=== PATIENT | female | born 1995 | race Two or more races ===

== ENCOUNTER 2017-03-09 21:39 | Outpatient (CLI) | payer OTHER, MEDICAID ==
[2017-03-09 22:19] LABS: APPEARANCE,URINE CLEAR; BILIRUBIN,URINE NEGATIVE (NEGATIVE); GLUCOSE, URINE NEGATIVE (NEGATIVE); KETONES,URINE NEGATIVE (NEGATIVE); LEUKOCYTE ESTERASE,URINE TRACE (NEGATIVE); NITRITE,URINE NEGATIVE (NEGATIVE); PROTEIN,URINE 30 mg/dL (NEGATIVE); URINE SPECIFIC GRAVITY 1.003; UROBILINOGEN,URINE NEGATIVE mg/dL (<2.0)
[2017-03-09] MEDS ORDERED: OXYCODONE-ACETAMINOPHEN 5-325 MG TABLET ONE (22:31)
[2017-03-09 22:33] LABS: URINE BARBITURATES SCREEN NEGATIVE; URINE METHADONE SCREEN NEGATIVE; URINE OPIATES LOW NEGATIVE; URINE PHENCYCLIDINE SCREEN NEGATIVE
[2017-03-09] MEDS ORDERED: OXYCODONE-ACETAMINOPHEN 5-325 MG TABLET PO ONE (22:45)
--- NOTE | 2017-03-10 01:51 | L&D Discharge Summary ---
OB Discharge Summary Datetime Report Generated by CPN: 03/10/2017 01:51 DISCHARGE DIAGNOSIS Diagnosis/Symptoms: False Labor; Back Pain Diagnoses/Symptoms Other: Monitors DC. Pt given 1 Percocet 5mg/325mg PO for back pain. Educated pt on dehydration and pre term labor signs. Treatment/Procedures Other: 1 Percocet 5mg/325mg PO Gestation: 26.6 Number of Babies in Womb: 1 Parity: 0 DIET/ACTIVITY/RESTRICTIONS Diet: Regular Activity: Normal Activity TEACHING/INSTRUCTIONS/REFERRALS Instructions Given To: pt and Instructions Understood: Patient Verbalized Understanding; Support Person Verbalized Understanding Referrals: None DISCHARGE INFORMATION Discharged AMA: No Discharge Date/Time: 03/09/2017 22:51 Discharged To: Home Discharge Provider Name: Ray Accompanied By: Discharge Method: Ambulatory Condition: Stable FOLLOW UP INFORMATION Follow Up With: [facility] Follow Up On: 1-2 Days Follow Up Phone Number: [facility] - Comments: Pt reports 5/5 pain with no visual signs of facial grimicing or pt on the phone, showed no acute distress. Pain medication given
--- NOTE | 2017-03-10 22:50 | Antepartum Discharge Summary ---
Antepartum DC Datetime Report Generated by CPN: 03/10/2017 22:45 DIET/ACTIVITY/RESTRICTIONS Diet: Regular (03/09/2017 22:48:Crystal Savanah, RN) Activity: Normal Activity (03/09/2017 22:48:Crystal Savanah, RN) TEACHING/INSTRUCTIONS/REFERRALS Instructions Given To: pt and (03/09/2017 22:48:Crystal Savanah, RN) Instructions Understood: Patient Verbalized Understanding; Support Person Verbalized Understanding (03/09/2017 22:48:Mia Pavon RN) Referrals: None (03/09/2017 22:48:Mia Pavon RN) DISCHARGE INFORMATION Discharged AMA: No (03/09/2017 22:48:Mia Pavon RN) Discharge Date/Time: 03/09/2017 22:51 (03/09/2017 22:48:Mia Pavon RN) Discharged To: Home (03/09/2017 22:48:Mia Pavon RN) [facility] (03/09/2017 22:48:Mia Pavon RN) Accompanied By: (03/09/2017 22:48:Mia Pavon RN) Discharge Method: Ambulatory (03/09/2017 22:48:Mia Pavon RN) Condition: Stable (03/09/2017 22:48:Mia Pavon RN) FOLLOW UP INFORMATION Follow Up With: [facility] (03/09/2017 22:48:Mia Pavon RN) Follow Up On: 1-2 Days (03/09/2017 22:48:Mia Pavon RN) Follow Up Phone Number: [facility] - (03/09/2017 22:48:Mia Pavon RN) Comments: Pt reports 5/5 pain with no visual signs of facial grimicing or pt on the phone, showed no acute distress. Pain medication given (03/09/2017 22:48:Mia Pavon RN)
--- NOTE | 2017-03-10 22:50 | L&D General Admission ---
General Admit Datetime Report Generated by CPN: 03/10/2017 22:45 INFORMATION Patient Age: 21 (03/09/2017 21:39:QS system process) EDC: 06/09/2017 00:00 (03/09/2017 21:43:Bhavana Dugan RN) : 1 (03/09/2017 21:43:Crystal PRISCILLA Pavon) Para: 0 (03/09/2017 21:43:Crystal Savanah RN) Baby, Number in Womb: 1 (03/09/2017 21:43:Crystal Savanah RN) CARE Adequate Care: Yes (03/09/2017 21:43:Mia Pavon RN) Height (in): 68 (03/09/2017 22:12:QS system process) ALLERGIES Medication Allergy: No (03/09/2017 21:43:Mia Pavon RN) Medication Allergies: No Known Allergies (03/09/2017) (03/09/2017 22:11:QS system process) Latex Allergy: No Latex Allergies (03/09/2017 21:43:Mia Pavon RN) Food Allergies: NA (03/09/2017 21:43:Mia Pavon RN) Environmental Allergies: NA (03/09/2017 21:43:Mia Pavon RN) COMMUNICATION Primary Language: Kenyan (03/09/2017 21:43:Mia Pavon RN) Medical Tx Preferred Language: Kenyan (03/09/2017 21:43:Mia Pavon RN) DEMOGRAPHICS Address: [address] [place] [id number] (03/09/2017 21:39:QS system process) Zipcode: [address] (03/09/2017 21:39:QS system process) Home (03/09/2017 21:39:QS system process) SSN: [id number] (03/09/2017 21:39:QS system process) Next of Kin Name: MELISA ERNANDEZ (03/09/2017 21:39:QS system process) Next of Kin (03/09/2017 21:39:QS system process) Next of Kin Relationship: SPO (03/09/2017 21:39:QS system process) Date of : 1995 (03/09/2017 21:39:QS system process) Marital Status: (03/09/2017 21:39:QS system process) Sex: Female (03/09/2017 21:39:QS system process) Race: Other (03/09/2017 21:39:QS system process) Ethnicity: Non- or (03/09/2017 21:39:QS system process) Caodaism: None (03/09/2017 21:39:QS system process) DRUG AND ALCOHOL USE Alcohol: No (03/09/2017 21:43:Mia Pavon RN) Cigarettes: Never Smoker. [id number] (03/09/2017 21:43:Mia Pavon RN) Marijuana: No (03/09/2017 21:43:Mia Pavon RN) Cocaine: No (03/09/2017 21:43:Mia Pavon RN) Other Illicit Drugs: No (03/09/2017 21:43:Mia Pavon RN) VACCINE HISTORY Influenza Vaccine: Yes (03/09/2017 21:43:Mia Pavon RN) Influenza Date: 2016 (03/09/2017 21:43:Mia Pavon RN) Pneumococcal Vaccine: No (03/09/2017 21:43:Mia Pavon RN) Tetanus Vaccine: Yes (03/09/2017 21:43:Mia Pavon RN) Tetanus Date: 2012 (03/09/2017 21:43:Mia Pavon RN) Tdap Vaccine: Yes (03/09/2017 21:43:Mia Pavon RN) Tdap Date: 2012 (03/09/2017 21:43:Mia Pavon RN) Hepatitis B Vaccine: Yes (03/09/2017 21:43:Mia Pavon RN) Hepatitis B Vaccine Date : 2012 (03/09/2017 21:43:Mia Pavon RN) Commercial Trailer Truck Driver: [facility] (03/09/2017 21:43:Mia Pavon RN) Feeding Preference: Breast (03/09/2017 21:43:Mia Pavon RN) Benefit of Breast Feed Discussed: Yes (03/09/2017 21:43:Mia Pavon RN) Classes Attended: No (03/09/2017 21:43:Mia Pavon RN) Tubal Ligation: No (03/09/2017 21:43:Mia Pavon RN) Tubal Authorization Signed: N/A (03/09/2017 21:43:Mia Pavon RN) Consent: N/A (03/09/2017 21:43:Mia Pavon RN) Consent Signed: N/A (03/09/2017 21:43:Mia Pavon RN) Support Person: Melisa Ernandez (03/09/2017 21:43:Mia Pavon RN) Support Person Relationship: (03/09/2017 21:43:Mia Pavon RN) Cultural/Spritual Practice: No (03/09/2017 21:43:Mia Pavon RN) Spir/Cult Dietary Needs: No (03/09/2017 21:43:Mia Pavon RN) LIVING SITUATION/DISCHARGE PLAN Living Arrangements: Apartment (03/09/2017 21:43:Mia Pavon RN) Adequate Access to:: Electric; Heat; Refrigeration; Plumbing/Running water; Phone; Transportation (03/09/2017 21:43:Mia Pavon RN) WIC Program: No (03/09/2017 21:43:Mia Pavon RN) Discharge Bandoleer Packer Person: Melisa Ernandez (03/09/2017 21:43:Mia Pavon RN) Person to Help after Discharge: Melisa Ernandez (03/09/2017 21:43:Mia Pavno RN) Currently Using Commun Resources: No (03/09/2017 21:43:Mia Pavon RN) Outside Agency/Car Inspection And Repair Manager: No (03/09/2017 21:43:Mia Pavon RN) Car Seat for Discharge: Yes (03/09/2017 21:43:Mia Pavon RN) Adoption Requested: No (03/09/2017 21:43:Mia Pavon RN) Pt Contact w/infant Post : N/A (03/09/2017 21:43:Mia Pavon RN) OB/PREVIOUS HISTORY Current Procedures: Ultrasound (03/09/2017 21:43:Mia Pavon RN) History of Previous : No (03/09/2017 21:43:Mia Pavon RN) History of Gestational Diabetes: No (03/09/2017 21:43:Mia Pavon RN) History of PIH: No (03/09/2017 21:43:Mia Pavon RN) History of Incompetent Cervix: No (03/09/2017 21:43:Mia Pavon RN) History of Placenta Previa/Abrup: No (03/09/2017 21:43:Mia Pavon RN) History of Macrosomia: No (03/09/2017 21:43:Mia Pavon RN) History of IUGR: No (03/09/2017 21:43:Mia Pavon RN) History of Hemorrhage: No (03/09/2017 21:43:Mia Pavon RN) History of Loss/Stillborn: No (03/09/2017 21:43:Mia Pavon RN) History of : No (03/09/2017 21:43:Mia Pavon RN) History of D (Rh) Sensitization: No (03/09/2017 21:43:Mia Pavon RN) History Recurrent Loss/Stillborn: No (03/09/2017 21:43:Mia Pavon RN) History Depression/PP Depression: No (03/09/2017 21:43:Mia Pavon RN) History of Uterine Anomaly/ANGEL: No (03/09/2017 21:43:Mia Pavon RN) History of Infertility: No (03/09/2017 21:43:Mia Pavon RN) History of ART Treatment: No (03/09/2017 21:43:Mia Pavon RN) History of ANGEL: No (03/09/2017 21:43:Mia Pavon RN) Comments Obstetrical History: G1- current (03/09/2017 21:43:Mia Pavon RN) MEDICAL HISTORY Med Hx Diabetes: No (03/09/2017 21:43:Mia Pavon RN) Med Hx Hypertension: No (03/09/2017 21:43:Mia Pavon RN) Med Hx Heart Disease: No (03/09/2017 21:43:Mia Pavon RN) Med Hx Autoimmune Disorder: No (03/09/2017 21:43:Mia Pavon RN) Med Hx Kidney Disease/UTI: No (03/09/2017 21:43:Mia Pavon RN) Med Hx Neurologic/Epilepsy: No (03/09/2017 21:43:Mia Pavon RN) Med Hx Psychiatric Disorders: No (03/09/2017 21:43:Mia Pavon RN) Med Hx Hepatitis/Liver Disease: No (03/09/2017 21:43:Mia Pavon RN) Med Hx Varicosities/Phlebitis: No (03/09/2017 21:43:Mia Pavon RN) Med Hx Thyroid Dysfunction: No (03/09/2017 21:43:Mia Pavon RN) Med Hx Trauma/Violence: No (03/09/2017 21:43:Mia Pavon RN) Med Hx Blood Transfusion: No (03/09/2017 21:43:Mia Pvaon RN) Med Hx Pulmonary (Asthma,TB): No (03/09/2017 21:43:Mia Pavon RN) Med Hx Breast: No (03/09/2017 21:43:Mia Pavon RN) Med Hx ASSISTANT PROFESSOR OF ANTHROPOLOGY Surgery: No (03/09/2017 21:43:Mia Pavon RN) Med Hx Hospitalization/Surgery: No (03/09/2017 21:43:Mia Pavon RN) Med Hx Anesthetic Complications: No (03/09/2017 21:43:Mia Pavon RN) Med Hx Abnormal Pap Smear: No (03/09/2017 21:43:Mia Pavon RN) Other Medical Diseases: No (03/09/2017 21:43:Mia Pavon RN) Med Hx Significant Family Hx: No (03/09/2017 21:43:Mia Pavon RN) INFECTIOUS HISTORY Inf Hx Gonorrhea: No (03/09/2017 21:43:Mia Pavon RN) Inf Hx Chlamydia: No (03/09/2017 21:43:Mia Pavon RN) Inf Hx Syphilis: No (03/09/2017 21:43:Mia Pavon RN) Inf Hx HIV/AIDS: No (03/09/2017 21:43:Mia Pavon RN) Inf Hx Human Papilloma Virus: No (03/09/2017 21:43:Mia Pavon RN) Inf Hx Pt/Partner Genital Herpes: No (03/09/2017 21:43:Mia Pavon RN) Inf Hx Tuberculosis/Exposure: No (03/09/2017 21:43:Mia Pavon RN) Inf Hx Hepatitis B,C: No (03/09/2017 21:43:Mia Paovn RN) Inf Hx Rash or Viral Illness: No (03/09/2017 21:43:Mia Pavon RN) GENETIC HISTORY Gen Hx Age >=35 at AZUCENA: No (03/09/2017 21:43:Mia Pavon RN) Gen Hx Thalassemia: No (03/09/2017 21:43:Mia Pavon RN) Gen Hx Congenital Heart Defect: No (03/09/2017 21:43:Mia Pavon RN) Gen Hx Neural Tube Defect: No (03/09/2017 21:43:Mia Pavon RN) Gen Hx Down's Syndrome: No (03/09/2017 21:43:Mia Pavon RN) Gen Hx Leoniads-Sachs: No (03/09/2017 21:43:Mia Pavon RN) Gen Hx Oma: No (03/09/2017 21:43:Mia Pavon RN) Gen Hx Familial Dysautonomia: No (03/09/2017 21:43:Mia Pavon RN) Gen Hx Sickle Cell Disease/Trait: No (03/09/2017 21:43:Mia Pavon RN) Gen Hx Hemophilia/Blood Disorder: No (03/09/2017 21:43:Mia Pavon RN) Gen Hx Muscular Dystrophy: No (03/09/2017 21:43:Mia Pavon RN) Gen Hx Cystic Fibrosis: No (03/09/2017 21:43:Mia Pavon RN) Gen Hx Huntingtons Chorea: No (03/09/2017 21:43:Mia Pavon RN) Gen Hx Mental Retardation/Autism: No (03/09/2017 21:43:Mia Pavon RN) Gen Hx Tested for Fragile X: No (03/09/2017 21:43:Mia Pavon RN) Gen Hx Other Inher/Chromosomal: No (03/09/2017 21:43:Mia Pavon RN) Gen Hx Maternal Metabolic DO: No (03/09/2017 21:43:Mia Pavon RN) Gen Hx Pt Father or FOB Defect: No (03/09/2017 21:43:Mia Pavon RN) Gen Hx Other Genetic History: No (03/09/2017 21:43:Mia Pavon RN) Gen Hx Drugs/Meds since LMP: No (03/09/2017 21:43:Mia Pavon RN) Gen Hx Medications: vitamins (03/09/2017 21:43:Mia Pavon RN)
--- NOTE | 2017-03-10 22:50 | L&D Current Admission ---
Current Admit Datetime Report Generated by CPN: 03/10/2017 22:45 ADMISSION INFORMATION Chief Complaint: Back Pain (03/09/2017 22:01:Crystal PRISCILLA Pavon)
--- NOTE | 2017-03-10 22:50 | L&D Discharge Summary ---
OB Discharge Summary Datetime Report Generated by CPN: 03/10/2017 22:45 DISCHARGE DIAGNOSIS Diagnosis/Symptoms: False Labor; Back Pain Diagnoses/Symptoms Other: Monitors DC. Pt given 1 Percocet 5mg/325mg PO for back pain. Educated pt on dehydration and pre term labor signs. Treatment/Procedures Other: 1 Percocet 5mg/325mg PO Gestation: 26.6 Number of Babies in Womb: 1 Parity: 0 DIET/ACTIVITY/RESTRICTIONS Diet: Regular Activity: Normal Activity TEACHING/INSTRUCTIONS/REFERRALS Instructions Given To: pt and Instructions Understood: Patient Verbalized Understanding; Support Person Verbalized Understanding Referrals: None DISCHARGE INFORMATION Discharged AMA: No Discharge Date/Time: 03/09/2017 22:51 Discharged To: Home Discharge Provider Name: Ray Accompanied By: Discharge Method: Ambulatory Condition: Stable FOLLOW UP INFORMATION Follow Up With: [email or web address] Follow Up On: 1-2 Days Follow Up Phone Number: [email or web address] - Comments: Pt reports 5/5 pain with no visual signs of facial grimicing or pt on the phone, showed no acute distress. Pain medication given
--- NOTE | 2017-03-11 04:50 | L&D Current Admission ---
Current Admit Datetime Report Generated by CPN: 03/11/2017 04:46 ADMISSION INFORMATION Chief Complaint: Back Pain (03/09/2017 22:01:Crystal PRISCILLA Pavon)
--- NOTE | 2017-03-11 04:50 | Antepartum Discharge Summary ---
Antepartum DC Datetime Report Generated by CPN: 03/11/2017 04:46 DIET/ACTIVITY/RESTRICTIONS Diet: Regular (03/09/2017 22:48:Crystal Savanah, RN) Activity: Normal Activity (03/09/2017 22:48:Crystal Savanah, RN) TEACHING/INSTRUCTIONS/REFERRALS Instructions Given To: pt and (03/09/2017 22:48:Crystal Savanah, RN) Instructions Understood: Patient Verbalized Understanding; Support Person Verbalized Understanding (03/09/2017 22:48:Mia Pavon RN) Referrals: None (03/09/2017 22:48:Mia Pavon RN) DISCHARGE INFORMATION Discharged AMA: No (03/09/2017 22:48:Mia Pavon RN) Discharge Date/Time: 03/09/2017 22:51 (03/09/2017 22:48:Mia Pavon RN) Discharged To: Home (03/09/2017 22:48:Mia Pavon RN) Discharge Provider [facility]: [facility] (03/09/2017 22:48:Mia Pavon RN) Accompanied By: (03/09/2017 22:48:Mia Pavon RN) Discharge Method: Ambulatory (03/09/2017 22:48:Mia Pavon RN) Condition: Stable (03/09/2017 22:48:Mia Pavon RN) FOLLOW UP INFORMATION Follow Up With: [facility] (03/09/2017 22:48:Mia Pavon RN) Follow Up On: 1-2 Days (03/09/2017 22:48:Mia Pavon RN) Follow Up Phone Number: [facility] - (03/09/2017 22:48:Mia Pavon RN) Comments: Pt reports 5/5 pain with no visual signs of facial grimicing or pt on the phone, showed no acute distress. Pain medication given (03/09/2017 22:48:Mia Pavon RN)
--- NOTE | 2017-03-11 04:50 | L&D Discharge Summary ---
OB Discharge Summary Datetime Report Generated by CPN: 03/11/2017 04:46 DISCHARGE DIAGNOSIS Diagnosis/Symptoms: False Labor; Back Pain Diagnoses/Symptoms Other: Monitors DC. Pt given 1 Percocet 5mg/325mg PO for back pain. Educated pt on dehydration and pre term labor signs. Treatment/Procedures Other: 1 Percocet 5mg/325mg PO Gestation: 26.6 Number of Babies in Womb: 1 Parity: 0 DIET/ACTIVITY/RESTRICTIONS Diet: Regular Activity: Normal Activity TEACHING/INSTRUCTIONS/REFERRALS Instructions Given To: pt and Instructions Understood: Patient Verbalized Understanding; Support Person Verbalized Understanding Referrals: None DISCHARGE INFORMATION Discharged AMA: No Discharge Date/Time: 03/09/2017 22:51 Discharged To: Home Discharge Provider Name: Ray Accompanied By: Discharge Method: Ambulatory Condition: Stable FOLLOW UP INFORMATION Follow Up With: [facility] Follow Up On: 1-2 Days Follow Up Phone Number: [facility] - Comments: Pt reports 5/5 pain with no visual signs of facial grimicing or pt on the phone, showed no acute distress. Pain medication given
--- NOTE | 2017-03-11 04:50 | L&D General Admission ---
General Admit Datetime Report Generated by CPN: 03/11/2017 04:46 INFORMATION Patient Age: 21 (03/09/2017 21:39:QS system process) EDC: 06/09/2017 00:00 (03/09/2017 21:43:Bhavana Dugan RN) : 1 (03/09/2017 21:43:Crystal PRISCILLA Pavon) Para: 0 (03/09/2017 21:43:Crystal Savanah RN) Baby, Number in Womb: 1 (03/09/2017 21:43:Crystal Savanah RN) CARE Adequate Care: Yes (03/09/2017 21:43:Mia Pavon RN) Height (in): 68 (03/09/2017 22:12:QS system process) ALLERGIES Medication Allergy: No (03/09/2017 21:43:Mia Pavon RN) Medication Allergies: No Known Allergies (03/09/2017) (03/09/2017 22:11:QS system process) Latex Allergy: No Latex Allergies (03/09/2017 21:43:Mia Pavon RN) Food Allergies: NA (03/09/2017 21:43:Mia Pavon RN) Environmental Allergies: NA (03/09/2017 21:43:Mia Pavon RN) COMMUNICATION Primary Language: Indian (03/09/2017 21:43:Mia Pavon RN) Medical Tx Preferred Language: Indian (03/09/2017 21:43:Mia Pavon RN) DEMOGRAPHICS Address: [address] [place] [id number] (03/09/2017 21:39:QS system process) Zipcode: [address] (03/09/2017 21:39:QS system process) Home (03/09/2017 21:39:QS system process) SSN: [id number] (03/09/2017 21:39:QS system process) Next of Kin Name: MELISA ERNANDEZ (03/09/2017 21:39:QS system process) Next of Kin (03/09/2017 21:39:QS system process) Next of Kin Relationship: SPO (03/09/2017 21:39:QS system process) Date of : 1995 (03/09/2017 21:39:QS system process) Marital Status: (03/09/2017 21:39:QS system process) Sex: Female (03/09/2017 21:39:QS system process) Race: Other (03/09/2017 21:39:QS system process) Ethnicity: Non- or (03/09/2017 21:39:QS system process) Evangelical: None (03/09/2017 21:39:QS system process) DRUG AND ALCOHOL USE Alcohol: No (03/09/2017 21:43:Mia Pavon RN) Cigarettes: Never Smoker. [id number] (03/09/2017 21:43:Mia Pavon RN) Marijuana: No (03/09/2017 21:43:Mia Pavon RN) Cocaine: No (03/09/2017 21:43:Mia Pavon RN) Other Illicit Drugs: No (03/09/2017 21:43:Mia Pavon RN) VACCINE HISTORY Influenza Vaccine: Yes (03/09/2017 21:43:Mia Pavon RN) Influenza Date: 2016 (03/09/2017 21:43:Mia Pavon RN) Pneumococcal Vaccine: No (03/09/2017 21:43:Mia Pavon RN) Tetanus Vaccine: Yes (03/09/2017 21:43:Mia Pavon RN) Tetanus Date: 2012 (03/09/2017 21:43:Mia Pavon RN) Tdap Vaccine: Yes (03/09/2017 21:43:Mia Pavon RN) Tdap Date: 2012 (03/09/2017 21:43:Mia Pavon RN) Hepatitis B Vaccine: Yes (03/09/2017 21:43:Mia Pavon RN) Hepatitis B Vaccine Date : 2012 (03/09/2017 21:43:Mia Pavon RN) [place]: [facility] (03/09/2017 21:43:Mia Pavon RN) Feeding Preference: Breast (03/09/2017 21:43:Mia Pavon RN) Benefit of Breast Feed Discussed: Yes (03/09/2017 21:43:Mia Pavon RN) Classes Attended: No (03/09/2017 21:43:Mia Pavon RN) Tubal Ligation: No (03/09/2017 21:43:Mia Pavon RN) Tubal Authorization Signed: N/A (03/09/2017 21:43:Mia Pavon RN) Consent: N/A (03/09/2017 21:43:Mia Pavon RN) Consent Signed: N/A (03/09/2017 21:43:Mia Pavon RN) Support Person: Melisa Ernandez (03/09/2017 21:43:Mia Pavon RN) Support Person Relationship: (03/09/2017 21:43:Mia Pavon RN) Cultural/Spritual Practice: No (03/09/2017 21:43:Mia Pavon RN) Spir/Cult Dietary Needs: No (03/09/2017 21:43:Mia Pavon RN) LIVING SITUATION/DISCHARGE PLAN Living Arrangements: Apartment (03/09/2017 21:43:Mia Pavon RN) Adequate Access to:: Electric; Heat; Refrigeration; Plumbing/Running water; Phone; Transportation (03/09/2017 21:43:Mia Pavon RN) WIC Program: No (03/09/2017 21:43:Mia Pavon RN) Discharge Primary Clinician Person: Melisa Ernandez (03/09/2017 21:43:Mia Pavon RN) Person to Help after Discharge: Melisa Ernandez (03/09/2017 21:43:Mia Pavon RN) Currently Using Commun Resources: No (03/09/2017 21:43:Mia Pavon RN) Outside Agency/Chlorination Operator: No (03/09/2017 21:43:Mia Pavon RN) Car Seat for Discharge: Yes (03/09/2017 21:43:Mia Pavon RN) Adoption Requested: No (03/09/2017 21:43:Mia Pavon RN) Pt Contact w/infant Post : N/A (03/09/2017 21:43:Mia Pavon RN) OB/PREVIOUS HISTORY Current Procedures: Ultrasound (03/09/2017 21:43:Mia Pavon RN) History of Previous : No (03/09/2017 21:43:Mia Pavon RN) History of Gestational Diabetes: No (03/09/2017 21:43:Mia Pavon RN) History of PIH: No (03/09/2017 21:43:Mia Pavon RN) History of Incompetent Cervix: No (03/09/2017 21:43:Mia Pavon RN) History of Placenta Previa/Abrup: No (03/09/2017 21:43:Mia Pavon RN) History of Macrosomia: No (03/09/2017 21:43:Mia Pavon RN) History of IUGR: No (03/09/2017 21:43:Mia Pavon RN) History of Hemorrhage: No (03/09/2017 21:43:Mia Pavon RN) History of Loss/Stillborn: No (03/09/2017 21:43:Mia Pavon RN) History of : No (03/09/2017 21:43:Mia Pavon RN) History of D (Rh) Sensitization: No (03/09/2017 21:43:Mia Pavon RN) History Recurrent Loss/Stillborn: No (03/09/2017 21:43:Mia Pavon RN) History Depression/PP Depression: No (03/09/2017 21:43:Mia Pavon RN) History of Uterine Anomaly/ANGEL: No (03/09/2017 21:43:Mia Pavon RN) History of Infertility: No (03/09/2017 21:43:Mia Pavon RN) History of ART Treatment: No (03/09/2017 21:43:Mia Pavon RN) History of ANGEL: No (03/09/2017 21:43:Mia Pavon RN) Comments Obstetrical History: G1- current (03/09/2017 21:43:Mia Pavon RN) MEDICAL HISTORY Med Hx Diabetes: No (03/09/2017 21:43:Mia Pavon RN) Med Hx Hypertension: No (03/09/2017 21:43:Mia Pavon RN) Med Hx Heart Disease: No (03/09/2017 21:43:Mia Pavon RN) Med Hx Autoimmune Disorder: No (03/09/2017 21:43:Mia Pavon RN) Med Hx Kidney Disease/UTI: No (03/09/2017 21:43:Mia Pavon RN) Med Hx Neurologic/Epilepsy: No (03/09/2017 21:43:Mia Pavon RN) Med Hx Psychiatric Disorders: No (03/09/2017 21:43:Mia Pavon RN) Med Hx Hepatitis/Liver Disease: No (03/09/2017 21:43:Mia Pavon RN) Med Hx Varicosities/Phlebitis: No (03/09/2017 21:43:Mia Pavon RN) Med Hx Thyroid Dysfunction: No (03/09/2017 21:43:Mia Pavon RN) Med Hx Trauma/Violence: No (03/09/2017 21:43:Mia Pavon RN) Med Hx Blood Transfusion: No (03/09/2017 21:43:Mia Pavon RN) Med Hx Pulmonary (Asthma,TB): No (03/09/2017 21:43:Mia Pavon RN) Med Hx Breast: No (03/09/2017 21:43:Mia Pavon RN) Med Hx [employer]ATE [employer]OP ATTENDANT Surgery: No (03/09/2017 21:43:Mia Pavon RN) Med Hx Hospitalization/Surgery: No (03/09/2017 21:43:Mia Pavon RN) Med Hx Anesthetic Complications: No (03/09/2017 21:43:Mia Pavon RN) Med Hx Abnormal Pap Smear: No (03/09/2017 21:43:Mia Pavon RN) Other Medical Diseases: No (03/09/2017 21:43:Mia Pavon RN) Med Hx Significant Family Hx: No (03/09/2017 21:43:Mia Pavon RN) INFECTIOUS HISTORY Inf Hx Gonorrhea: No (03/09/2017 21:43:Mia Pavon RN) Inf Hx Chlamydia: No (03/09/2017 21:43:Mia Pavon RN) Inf Hx Syphilis: No (03/09/2017 21:43:Mia Pavon RN) Inf Hx HIV/AIDS: No (03/09/2017 21:43:Mia Pavon RN) Inf Hx Human Papilloma Virus: No (03/09/2017 21:43:Mia Pavon RN) Inf Hx Pt/Partner Genital Herpes: No (03/09/2017 21:43:Mia Pavon RN) Inf Hx Tuberculosis/Exposure: No (03/09/2017 21:43:Mia Pavon RN) Inf Hx Hepatitis B,C: No (03/09/2017 21:43:Mia Pavon RN) Inf Hx Rash or Viral Illness: No (03/09/2017 21:43:Mia Pavon RN) GENETIC HISTORY Gen Hx Age >=35 at [facility]: No (03/09/2017 21:43:Mia Pavon RN) Gen Hx Thalassemia: No (03/09/2017 21:43:Mia Pavon RN) Gen Hx Congenital Heart Defect: No (03/09/2017 21:43:Mia Pavon RN) Gen Hx Neural Tube Defect: No (03/09/2017 21:43:Mia Pavon RN) Gen Hx Down's Syndrome: No (03/09/2017 21:43:Mia Pavon RN) Gen Hx Leonidas-Sachs: No (03/09/2017 21:43:Mia Pavon RN) Gen Hx Oma: No (03/09/2017 21:43:Mia aPvon RN) Gen Hx Familial Dysautonomia: No (03/09/2017 21:43:Mia Pavon RN) Gen Hx Sickle Cell Disease/Trait: No (03/09/2017 21:43:Mia Pavon RN) Gen Hx Hemophilia/Blood Disorder: No (03/09/2017 21:43:Mia Pavon RN) Gen Hx Muscular Dystrophy: No (03/09/2017 21:43:Mia Pavon RN) Gen Hx Cystic Fibrosis: No (03/09/2017 21:43:Mia Pavon RN) Gen Hx Huntingtons Chorea: No (03/09/2017 21:43:Mia Pavon RN) Gen Hx Mental Retardation/Autism: No (03/09/2017 21:43:Mia Pavon RN) Gen Hx Tested for Fragile X: No (03/09/2017 21:43:Mia Pavon RN) Gen Hx Other Inher/Chromosomal: No (03/09/2017 21:43:Mia Pavon RN) Gen Hx Maternal Metabolic DO: No (03/09/2017 21:43:Mia Pavon RN) Gen Hx Pt Father or FOB Defect: No (03/09/2017 21:43:Mia Pavon RN) Gen Hx Other Genetic History: No (03/09/2017 21:43:Mia Pavon RN) Gen Hx Drugs/Meds since LMP: No (03/09/2017 21:43:Mia Pavon RN) Gen Hx Medications: vitamins (03/09/2017 21:43:Mia Pavon RN)
--- NOTE | 2017-03-11 10:50 | L&D Admission Assessment ---
LD ADM ASMT Datetime Report Generated by CPN: 03/11/2017 10:45 PATIENT ASSESSMENT Assessment Type: Triage (03/09/2017 22:01:Crystal Pendleton, RN) WEIGHT Weight (lb): 156 (03/09/2017 22:12:QS system process) Weight (kg): 70.9 (03/09/2017 22:12:QS system process) PAIN Pain Scale: 5 (03/09/2017 22:01:Crystal Savanah, RN) Pain Presence: Constant (03/09/2017 22:01:Crystal Pendleton, RN) Pain Type: Sharp; Stabbing (03/09/2017 22:01:Crystal Savanah, RN) Pain Location: Abdomen; Back (03/09/2017 22:01:Crystal Pendleton, RN) Pain Goal: 1 (03/09/2017 22:01:Crystal Pendleton, RN) Pain Related to Contraction: Unsure (03/09/2017 22:01:Crystal Savanah, RN) CONTRACTIONS Frequency (min): Irregular mild contractions with irritability (03/09/2017 22:12:Crystal Pendleton, RN) Quality: Mild (03/09/2017 22:12:Crystal Pendleton, RN) Resting Tone [place]: Relaxed (03/09/2017 22:12:Crystal Savanah, RN) NEURO Level of Consciousness: Fully Conscious (03/09/2017 22:01:Crystal Pendleton, RN) DTR's/Clonus: DTRs 1+; No Clonus (03/09/2017 22:01:Crystal Savanah, RN) Headache: Denies (03/09/2017 22:01:Crystal Pendleton, RN) Dizziness: No (03/09/2017 22::Crystal Savanah, RN) Blurred Vision: No (03/09/2017 22:01:Crystal Pendleton, RN) Extremity Numbness/Tingling : None (03/09/2017 22::Crystal Savanah, RN) Extremity Movement: Full Range of Motion (03/09/2017 22::Crystal Savanah, RN) CARDIOVASCULAR Heart Rhythm: Regular (03/09/2017 22:01:Crystal Savanah, RN) Nailbeds: [place] (03/09/2017 22::Crystal Pendleton, RN) Capillary Refill: Less than 3 Seconds (03/09/2017 22:01:Mia Savanah, RN) Lower Extremities Edema: None (03/09/2017 22:01:Mia Pavon RN) Lower Extremities Edema Degree: None (03/09/2017 22:01:Mia Pavon RN) Upper Extremities Edema: None (03/09/2017 22:01:Mia Pavon RN) Upper Extremities Edema Degree: None (03/09/2017 22:01:Mia Pavon RN) Facial Edema: None (03/09/2017 22:01:Mia Pavon RN) Nick's Sign Left Leg: Negative (03/09/2017 22:01:Mia Pavon RN) Nick's Sign Right Leg: Negative (03/09/2017 22:01:Mia Pavon RN) DVT RISK ASSESSMENT DVT Risk Age: Age less than 41 years (03/09/2017 22:01:Mia Pavon RN) DVT Risk BMI: BMI<31 (03/09/2017 22:01:Mia Pavon RN) DVT Risk Surgery: None Applicable (03/09/2017 22:01:Mia Pavon RN) DVT Risk Other: None Applicable (03/09/2017 22:01:Mia Pavon RN) DVT Risk Total: 0 (03/09/2017 22:01:QS system process) DVT Risk Text: Low Risk (<10%) No specific measures, early ambulation (03/09/2017 22:01:QS system process) RESPIRATORY Respiratory Effort: Unlabored; Regular Rhythm; Equal Expansion (03/09/2017 22:01:Crystal Pendleton, RN) Breath Sounds, Left: Clear and Equal (03/09/2017 22:01:Crystal Pendleton, RN) Breath Sounds, Right: Clear and Equal (03/09/2017 22:01:Crystal Pendleton, RN) Cough Productivity: None (03/09/2017 22:01:Crystal Savanah, RN) GASTROINTESTINAL Nausea/Vomiting: Denies (03/09/2017 22:01:Mia Pavon RN) Bowel Sounds: Normoactive (03/09/2017 22:01:Mia Pavon RN) RUQ Epigastric Pain: Denies (03/09/2017 22:01:Mia Pavon RN) Response to Antacids: Pain Relieved (03/09/2017 22:01:Mia Pavon RN) Bowel Patterns: Soft, Formed Stool (03/09/2017 22:01:Mia Pavon RN) Hemorrhoids: None (03/09/2017 22:01:Mia Pavon RN) Diet Type: Regular diet (03/09/2017 22:01:Mia Pavon RN) Last Meal: 03/09/2017 21:00 (03/09/2017 22:01:Mia Pavon RN) GENITOURINARY Bladder: Nondistended (03/09/2017 22:01:Mia Pavon RN) Frequency of Urination: No (03/09/2017 22:01:Mia Pavon RN) Urination Burning: No (03/09/2017 22:01:Mia Pavon RN) CVA Tenderness: No (03/09/2017 22:01:Mia Pavon RN) Vaginal Bleeding: None (03/09/2017 22:01:Mia Pavon RN) Vaginal Discharge Amount: None (03/09/2017 22:01:Mia Pavon RN) Vaginal Discharge Color: N/A (03/09/2017 22:01:Mia Pavon RN) Vaginal Discharge Character: None (03/09/2017 22:01:Mia Pavon RN) INTEGUMENTARY Skin Color: Normal for Race (03/09/2017 22:01:Mia Pavon RN) Skin Temperature: Warm (03/09/2017 22:01:Mia Pavon RN) Skin Moisture: Dry (03/09/2017 22:01:Mia Pavon RN) Body Piercings/Tattoos: Tattoos (03/09/2017 22:01:Mia Pavon RN) RIGOBERTO SKIN ASSESSMENT Rigoberto Scale Sensory Perception: No Impairment- Responds to verbal commands. Has no sensory deficit which would limit ability to feel or voice pain or discomfort (03/09/2017 22:01:Mia Pavon RN) Rigoberto Scale Moisture: Rarely Moist- Skin is usually dry. Linen only requires changing at routine intervals (03/09/2017 22:01:Mia Pavon RN) Rigoberto Scale Activity: Walks Frequently- Walks outside the room at least twice a day and inside room at least every 2 hours during the day. (03/09/2017 22:01:Mia Pavon RN) Rigoberto Scale Mobility: No Limitations- Makes major and frequent changes in position without assistance (03/09/2017 22:01:Mia Pavon RN) Rigoberto Scale Nutrition: Excellent- Eats most of every meal. Never refuses a meal. Usually eats a total of 4 or more servings of meat and dairy products. Occasionally eats between meals. Does not require supplementation (03/09/2017 22:01:Mia Pavon RN) Rigoberto Scale Friction and Shear: No Apparent Problem- Moves in bed and in chair independently and has sufficient muscle strength to lift up completely during move. Maintains good position in bed or chair at all times (03/09/2017 22:01:Mia Pavon RN) Rigoberto Scale Total: 23 (03/09/2017 22:01:QS system process) Rigoberto Scale Risk: No Risk of Pressure Ulcer Noted at this Time (03/09/2017 22:01:QS system process) SUPPORT Family Support: Significant Other supportive, at bedside frequently (03/09/2017 22:01:Crystal Savanah, RN) Emotional State: Calm/Relaxed (03/09/2017 22:01:Crystal Savanah, RN) SAFETY Call [place]res Within Reach: Yes (03/09/2017 22:01:Crystal Savanah, RN) Side Rails Up: Yes (03/09/2017 22:01:Crystal Savanah, RN) Bed Wheels Locked: Yes (03/09/2017 22:01:Crystal Pendleton, RN) Arm Bands Present: Yes (03/09/2017 22:01:Crystal Pendleton, RN) Isolation: [place] (03/09/2017 22:01:Crystal Savanah, RN) FALL SCREEN Fall Risk History of Falling: (0) No (03/09/2017 22:01:Mia Pavon RN) Fall Risk Secondary Diagnosis: (0) No (03/09/2017 22::Mia Pavon RN) Fall Risk Ambulatory Aid: (0) None/Bedrest/Wheelchair/Nurse Assist (03/09/2017 22:01:Mia Pavon RN) Fall Risk IV Therapy: (0) No (03/09/2017 22::Mia Pavon RN) Fall Risk Gait: (0) Normal/Bedrest/Immobile (03/09/2017 22::Mia Pavon RN) Fall Risk Mental Status: (0) Oriented to Own Ability (03/09/2017 22:01:Mia Pavon RN) Fall Risk Score: 0 (03/09/2017 22:01:QS system process) Fall Risk Score Definition: No Risk: No action required (03/09/2017 22:01:QS system process) RECENT TRAVEL/INFECTIOUS DISEASE Recent Exp Communicable Disease: No (03/09/2017 22::Mia Pavon RN) Cough or Fever: No (03/09/2017 22:01:Mia Pavon RN) Foreign Travel Past 10 Days: No (03/09/2017 22::Mia Pavon RN) Open Wounds or Sores: No (03/09/2017 22:01:Mia Pavon RN) Prior Antibiotic Resistance Tx: No (03/09/2017 22:01:Mia Pavon RN) Cultures Obtained: Not Applicable (03/09/2017 22:01:Mia Pavon RN) Isolation Initiated: No (03/09/2017 22:01:Mia aPvon RN) Pt/Family Education: Not Applicable (03/09/2017 22:01:Mia Pavon RN) BABY A FHR Baseline Rate (bpm) Baby A: 140 (03/09/2017 22:12:Mia Pavon RN) Variability Baby A: Moderate 6-25 bpm (03/09/2017 22:12:Mia Pavon RN)
--- NOTE | 2017-03-11 10:50 | L&D Current Admission ---
Current Admit Datetime Report Generated by CPN: 03/11/2017 10:45 ADMISSION INFORMATION Chief Complaint: Back Pain (03/09/2017 22:01:Crystal PRISCILLA Pavon)
--- NOTE | 2017-03-11 10:50 | L&D General Admission ---
General Admit Datetime Report Generated by CPN: 03/11/2017 10:45 INFORMATION Patient Age: 21 (03/09/2017 21:39:QS system process) EDC: 06/09/2017 00:00 (03/09/2017 21:43:Bhavana Dugan RN) : 1 (03/09/2017 21:43:Crystal PRISCILLA Pavon) Para: 0 (03/09/2017 21:43:Crystal Savanah RN) Baby, Number in Womb: 1 (03/09/2017 21:43:Crystal Savanah RN) CARE Adequate Care: Yes (03/09/2017 21:43:Mia Pavon RN) Height (in): 68 (03/09/2017 22:12:QS system process) ALLERGIES Medication Allergy: No (03/09/2017 21:43:Mia Pavon RN) Medication Allergies: No Known Allergies (03/09/2017) (03/09/2017 22:11:QS system process) Latex Allergy: No Latex Allergies (03/09/2017 21:43:Mia Pavon RN) Food Allergies: NA (03/09/2017 21:43:Mia Pavon RN) Environmental Allergies: NA (03/09/2017 21:43:Mia Pavon RN) COMMUNICATION Primary Language: Cameroonian (03/09/2017 21:43:Mia Pavon RN) Medical Tx Preferred Language: Cameroonian (03/09/2017 21:43:Mia Pavon RN) DEMOGRAPHICS Address: [address] [place] [id number] (03/09/2017 21:39:QS system process) Zipcode: [address] (03/09/2017 21:39:QS system process) Home (03/09/2017 21:39:QS system process) SSN: [id number] (03/09/2017 21:39:QS system process) Next of Kin Name: MELISA ERNANDEZ (03/09/2017 21:39:QS system process) Next of Kin (03/09/2017 21:39:QS system process) Next of Kin Relationship: SPO (03/09/2017 21:39:QS system process) Date of : 1995 (03/09/2017 21:39:QS system process) Marital Status: (03/09/2017 21:39:QS system process) Sex: Female (03/09/2017 21:39:QS system process) Race: Other (03/09/2017 21:39:QS system process) Ethnicity: Non- or (03/09/2017 21:39:QS system process) Christian: None (03/09/2017 21:39:QS system process) DRUG AND ALCOHOL USE Alcohol: No (03/09/2017 21:43:Mia Pavon RN) Cigarettes: Never Smoker. [id number] (03/09/2017 21:43:Mia Pavon RN) Marijuana: No (03/09/2017 21:43:Mia Pavon RN) Cocaine: No (03/09/2017 21:43:Mia Pavon RN) Other Illicit Drugs: No (03/09/2017 21:43:Mia Pavon RN) VACCINE HISTORY Influenza Vaccine: Yes (03/09/2017 21:43:Mia Pavon RN) Influenza Date: 2016 (03/09/2017 21:43:Mia Pavon RN) Pneumococcal Vaccine: No (03/09/2017 21:43:Mia Pavon RN) Tetanus Vaccine: Yes (03/09/2017 21:43:Mia Pavon RN) Tetanus Date: 2012 (03/09/2017 21:43:Mia Pavon RN) Tdap Vaccine: Yes (03/09/2017 21:43:Mia Pavon RN) Tdap Date: 2012 (03/09/2017 21:43:Mia Pavon RN) Hepatitis B Vaccine: Yes (03/09/2017 21:43:Mia Pavon RN) Hepatitis B Vaccine Date : 2012 (03/09/2017 21:43:Mia Pavon RN) 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[facility]: [facility] (03/09/2017 21:43:Mia Pavon RN) Feeding Preference: Breast (03/09/2017 21:43:Mia Pavon RN) Benefit of Breast Feed Discussed: Yes (03/09/2017 21:43:Mia Pavon RN) Classes Attended: No (03/09/2017 21:43:Mia Pavon RN) Tubal Ligation: No (03/09/2017 21:43:Mia Pavon RN) Tubal Authorization Signed: N/A (03/09/2017 21:43:Mia Pavon RN) Consent: N/A (03/09/2017 21:43:Mia Pavon RN) Consent Signed: N/A (03/09/2017 21:43:Mia Pavon RN) Support Person: Melisa Ernandez (03/09/2017 21:43:Mia Pavon RN) Support Person Relationship: (03/09/2017 21:43:Mia Pavon RN) Cultural/Spritual Practice: No (03/09/2017 21:43:Mia Pavon RN) Spir/Cult Dietary Needs: No (03/09/2017 21:43:Mia Pavon RN) LIVING SITUATION/DISCHARGE PLAN Living Arrangements: Apartment (03/09/2017 21:43:Mia Pavon RN) Adequate Access to:: Electric; Heat; Refrigeration; Plumbing/Running water; Phone; Transportation (03/09/2017 21:43:Mia Pavon RN) WIC Program: No (03/09/2017 21:43:Mia Pavon RN) Discharge Clinical Trial Assistant Person: Melisa Ernandez (03/09/2017 21:43:Mia Pavon RN) Person to Help after Discharge: Melisa Ernandez (03/09/2017 21:43:Mia Pavon RN) Currently Using Commun Resources: No (03/09/2017 21:43:Mia Pavon RN) Outside Agency/Conference Reservationist: No (03/09/2017 21:43:Mia Pavon RN) Car Seat for Discharge: Yes (03/09/2017 21:43:Mia Pavon RN) Adoption Requested: No (03/09/2017 21:43:Mia Pavon RN) Pt Contact w/infant Post : N/A (03/09/2017 21:43:Mia Pavon RN) OB/PREVIOUS HISTORY Current Procedures: Ultrasound (03/09/2017 21:43:Mia Pavon RN) History of Previous : No (03/09/2017 21:43:Mia Pavon RN) History of Gestational Diabetes: No (03/09/2017 21:43:Mia Pavon RN) History of PIH: No (03/09/2017 21:43:Mia Pavon RN) History of Incompetent Cervix: No (03/09/2017 21:43:Mia Pavon RN) History of Placenta Previa/Abrup: No (03/09/2017 21:43:Mia Pavon RN) History of Macrosomia: No (03/09/2017 21:43:Mia Pavon RN) History of IUGR: No (03/09/2017 21:43:Mia Pavon RN) History of Hemorrhage: No (03/09/2017 21:43:Mia Pavon RN) History of Loss/Stillborn: No (03/09/2017 21:43:Mia Pavon RN) History of : No (03/09/2017 21:43:Mia Pavon RN) History of D (Rh) Sensitization: No (03/09/2017 21:43:Mia Pavon RN) History Recurrent Loss/Stillborn: No (03/09/2017 21:43:Mia Pavon RN) History Depression/PP Depression: No (03/09/2017 21:43:Mia Pavon RN) History of Uterine Anomaly/ANGEL: No (03/09/2017 21:43:Mia Pavon RN) History of Infertility: No (03/09/2017 21:43:Mia Pavon RN) History of ART Treatment: No (03/09/2017 21:43:Mia Pavon RN) History of ANGEL: No (03/09/2017 21:43:Mia Pavon RN) Comments Obstetrical History: G1- current (03/09/2017 21:43:Mia Pavon RN) MEDICAL HISTORY Med Hx Diabetes: No (03/09/2017 21:43:Mia Pavon RN) Med Hx Hypertension: No (03/09/2017 21:43:Mia Pavon RN) Med Hx Heart Disease: No (03/09/2017 21:43:Mia Pavon RN) Med Hx Autoimmune Disorder: No (03/09/2017 21:43:Mia Pavon RN) Med Hx Kidney Disease/UTI: No (03/09/2017 21:43:Mia Pavon RN) Med Hx Neurologic/Epilepsy: No (03/09/2017 21:43:Mia Pavon RN) Med Hx Psychiatric Disorders: No (03/09/2017 21:43:Mia Pavon RN) Med Hx Hepatitis/Liver Disease: No (03/09/2017 21:43:Mia Pavon RN) Med Hx Varicosities/Phlebitis: No (03/09/2017 21:43:Mia Pavon RN) Med Hx Thyroid Dysfunction: No (03/09/2017 21:43:Mia Pavon RN) Med Hx Trauma/Violence: No (03/09/2017 21:43:Mia Pavon RN) Med Hx Blood Transfusion: No (03/09/2017 21:43:Mia Pavon RN) Med Hx Pulmonary (Asthma,TB): No (03/09/2017 21:43:Mia Pavon RN) Med Hx Breast: No (03/09/2017 21:43:Mia Pavon RN) 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 (03/09/2017 21:43:Mia Pavon RN) Med Hx Hospitalization/Surgery: No (03/09/2017 21:43:Mia Pavon RN) Med Hx Anesthetic Complications: No (03/09/2017 21:43:Mia Pavon RN) Med Hx Abnormal Pap Smear: No (03/09/2017 21:43:Mia Pavon RN) Other Medical Diseases: No (03/09/2017 21:43:Mia Pavon RN) Med Hx Significant Family Hx: No (03/09/2017 21:43:Mia Pavon RN) INFECTIOUS HISTORY Inf Hx Gonorrhea: No (03/09/2017 21:43:Mia Pavon RN) Inf Hx Chlamydia: No (03/09/2017 21:43:Mia Pavon RN) Inf Hx Syphilis: No (03/09/2017 21:43:Mia Pavon RN) Inf Hx HIV/AIDS: No (03/09/2017 21:43:Mia Pavon RN) Inf Hx Human Papilloma Virus: No (03/09/2017 21:43:Mia Pavon RN) Inf Hx Pt/Partner Genital Herpes: No (03/09/2017 21:43:Mia Pavon RN) Inf Hx Tuberculosis/Exposure: No (03/09/2017 21:43:Mia Pavon RN) Inf Hx Hepatitis B,C: No (03/09/2017 21:43:Mia Pavon RN) Inf Hx Rash or Viral Illness: No (03/09/2017 21:43:Mia Pavon RN) GENETIC HISTORY Gen Hx Age >=35 at AZUCENA: No (03/09/2017 21:43:Mia Pavon RN) Gen Hx Thalassemia: No (03/09/2017 21:43:Mia Pavon RN) Gen Hx Congenital Heart Defect: No (03/09/2017 21:43:Mia Pavon RN) Gen Hx Neural Tube Defect: No (03/09/2017 21:43:Mia Pavon RN) Gen Hx Down's Syndrome: No (03/09/2017 21:43:Mia Pavon RN) Gen Hx Leonidas-Sachs: No (03/09/2017 21:43:Mia Pavon RN) Gen Hx Oma: No (03/09/2017 21:43:Mia Pavon RN) Gen Hx Familial Dysautonomia: No (03/09/2017 21:43:Mia Pavon RN) Gen Hx Sickle Cell Disease/Trait: No (03/09/2017 21:43:Mia Pvaon RN) Gen Hx Hemophilia/Blood Disorder: No (03/09/2017 21:43:Mia Pavon RN) Gen Hx Muscular Dystrophy: No (03/09/2017 21:43:Mia Pavon RN) Gen Hx Cystic Fibrosis: No (03/09/2017 21:43:Mia Pavon RN) Gen Hx Huntingtons Chorea: No (03/09/2017 21:43:Mia Pavon RN) Gen Hx Mental Retardation/Autism: No (03/09/2017 21:43:Mia Pavon RN) Gen Hx Tested for Fragile X: No (03/09/2017 21:43:Mia Pavon RN) Gen Hx Other Inher/Chromosomal: No (03/09/2017 21:43:Mia Pavon RN) Gen Hx Maternal Metabolic DO: No (03/09/2017 21:43:Mia Pavon RN) Gen Hx Pt Father or FOB Defect: No (03/09/2017 21:43:Mia Pavon RN) Gen Hx Other Genetic History: No (03/09/2017 21:43:Mia Pavon RN) Gen Hx Drugs/Meds since LMP: No (03/09/2017 21:43:Mia Pavon RN) Gen Hx Medications: vitamins (03/09/2017 21:43:Mia Pavon RN)
--- NOTE | 2017-03-11 10:50 | L&D Discharge Summary ---
OB Discharge Summary Datetime Report Generated by CPN: 03/11/2017 10:45 DISCHARGE DIAGNOSIS Diagnosis/Symptoms: False Labor; Back Pain Diagnoses/Symptoms Other: Monitors DC. Pt given 1 Percocet 5mg/325mg PO for back pain. Educated pt on dehydration and pre term labor signs. Treatment/Procedures Other: 1 Percocet 5mg/325mg PO Gestation: 26.6 Number of Babies in Womb: 1 Parity: 0 DIET/ACTIVITY/RESTRICTIONS Diet: Regular Activity: Normal Activity TEACHING/INSTRUCTIONS/REFERRALS Instructions Given To: pt and Instructions Understood: Patient Verbalized Understanding; Support Person Verbalized Understanding Referrals: None DISCHARGE INFORMATION Discharged AMA: No Discharge Date/Time: 03/09/2017 22:51 Discharged To: Home Discharge Provider Name: Ray Accompanied By: Discharge Method: Ambulatory Condition: Stable FOLLOW UP INFORMATION Follow Up With: [facility] Follow Up On: 1-2 Days Follow Up Phone Number: [facility] - Comments: Pt reports 5/5 pain with no visual signs of facial grimicing or pt on the phone, showed no acute distress. Pain medication given
--- NOTE | 2017-03-11 10:50 | Antepartum Discharge Summary ---
Antepartum DC Datetime Report Generated by CPN: 03/11/2017 10:45 DIET/ACTIVITY/RESTRICTIONS Diet: Regular (03/09/2017 22:48:Crystal Savanah, RN) Activity: Normal Activity (03/09/2017 22:48:Crystal Savanah, RN) TEACHING/INSTRUCTIONS/REFERRALS Instructions Given To: pt and (03/09/2017 22:48:Crystal Savanah, RN) Instructions Understood: Patient Verbalized Understanding; Support Person Verbalized Understanding (03/09/2017 22:48:Mia Pavon RN) Referrals: None (03/09/2017 22:48:Mia Pavon RN) DISCHARGE INFORMATION Discharged AMA: No (03/09/2017 22:48:Mia Pavon RN) Discharge Date/Time: 03/09/2017 22:51 (03/09/2017 22:48:Mia Pavon RN) Discharged To: Home (03/09/2017 22:48:Mia Pavon RN) Discharge Provider Name: [place] (03/09/2017 22:48:Mia Pavon RN) Accompanied By: (03/09/2017 22:48:Mia Pavon RN) Discharge Method: Ambulatory (03/09/2017 22:48:Mia Pavon RN) Condition: Stable (03/09/2017 22:48:Mia Pavon RN) FOLLOW UP INFORMATION Follow Up With: [facility] (03/09/2017 22:48:Mia Pavon RN) Follow Up On: 1-2 Days (03/09/2017 22:48:Mia Pavon RN) Follow Up Phone Number: [facility] - (03/09/2017 22:48:Mia Pavon RN) Comments: Pt reports 5/5 pain with no visual signs of facial grimicing or pt on the phone, showed no acute distress. Pain medication given (03/09/2017 22:48:Mia Pavon RN)
== END 2017-03-09 22:51 | disposition home or self-care (01) ==
LOC: LC 21:39
PROVIDERS: ATTEND Specialist
PROC: 4A1HXCZ Monitoring of Products of Conception, Cardiac Rate, External Approach (ICD-10-PCS; principal; 2017-03-09)
DX: O47.03 False labor before 37 completed weeks of gestation, third trimester (principal); Z3A.26 26 weeks gestation of pregnancy
CPT/HCPCS: 80307; 81001; 87086

== ENCOUNTER 2017-05-26 16:33 | Outpatient (CLI) | payer OTHER, MEDICAID ==
[2017-05-26 17:13] LABS: ABSOLUTE EOSINOPHILS # (AUTO) 0.1 10^3/uL (0.0-0.6); ABSOLUTE LYMPHOCYTES (AUTO) 1.8 10^3/uL (0.5-4.7); ABSOLUTE NEUT (AUTO) 6.9 10^3/uL (1.7-8.2); BASOPHILS % (AUTO) 0.5 % (0-2); EOSINOPHILS % (AUTO) 0.8 % (0-6); HEMATOCRIT 35.9 % (36.0-47.0); HEMOGLOBIN 11.9 g/dL (12.0-15.5); HGB HCT DIFFERENCE -0.2; LYMPHOCYTES % (AUTO) 18.7 % (13-45); MEAN CORPUSCULAR HEMOGLOBIN 26.5 pg (27.0-33.4); MEAN CORPUSCULAR HGB CONC 33.2 g/dL (32.0-36.0); MEAN CORPUSCULAR VOLUME 80 fl (80-97); RED BLOOD COUNT 4.51 10^6/uL (3.72-5.28); RED CELL DISTRIBUTION WIDTH 14.6 % (11.5-14.0); WHITE BLOOD COUNT 9.8 10^3/uL (4.0-10.5)
[2017-05-26 17:17] LABS: APPEARANCE,URINE CLOUDY; BILIRUBIN,URINE NEGATIVE (NEGATIVE); GLUCOSE, URINE NEGATIVE (NEGATIVE); KETONES,URINE NEGATIVE (NEGATIVE); LEUKOCYTE ESTERASE,URINE MODERATE (NEGATIVE); NITRITE,URINE NEGATIVE (NEGATIVE); PROTEIN,URINE NEGATIVE (NEGATIVE); URINE SPECIFIC GRAVITY 1.004; UROBILINOGEN,URINE NEGATIVE mg/dL (<2.0)
--- NOTE | 2017-05-26 17:29 | Non Stress Test Report ---
Non Stress Test Datetime Report Generated by CPN: 05/26/2017 17:29 DEMOGRAPHIC EGA NST: 38.0 INDICATION Indication for Study: Ordered by Provider MONITORING Monitor Explained: Monitor Explained; Test Explained; Patient Verbalized Understanding Time on Monitor: 05/26/2017 16:44 Time off Monitor: 05/26/2017 17:27 NST Duration: 43 NST INTERVENTIONS NST Interventions: Reposition Patient Physician Notified NST: Dr. Tanner BABY A: [id number] BABY A Movement : Present Contraction Frequency : occasional FHR Baseline : 140 Accelerations : 15X15 Variability : Moderate 6-25bpm NST Review: Meets Criteria for Reactive NST NST Review and Verified By : Tram Bud RNC NST Results: Reactive NST REPORT Report Trigger: Send Report
[2017-05-26 17:31] LABS: ALANINE AMINOTRANSFERASE 15 U/L (9-52); ALKALINE PHOSPHATASE 238 U/L (38-126); ANION GAP 8 (5-19); ASPARTATE AMINO TRANSFERASE 17 U/L (14-36); BILIRUBIN,DIRECT 0.3 mg/dL (0.0-0.4); BILIRUBIN,TOTAL 0.5 mg/dL (0.2-1.3); BLOOD UREA NITROGEN 8 mg/dL (7-20); CALCIUM 8.2 mg/dL (8.4-10.2); CARBON DIOXIDE 23 mmol/L (22-30); CHLORIDE 107 mmol/L (98-107); CREATININE RESULT 0.77 mg/dL (0.52-1.25); GLUCOSE 85 mg/dL (75-110); LDH 474 U/L (313-618); POTASSIUM 4.3 mmol/L (3.6-5.0); SODIUM 137.6 mmol/L (137-145); URIC ACID 6.2 mg/dL (2.5-6.2)
[2017-05-26 17:37] LABS: URINE BARBITURATES SCREEN NEGATIVE; URINE METHADONE SCREEN NEGATIVE; URINE OPIATES LOW NEGATIVE; URINE PHENCYCLIDINE SCREEN NEGATIVE
[2017-05-26 17:41] LABS: URINE CREATININE 51.7 mg/dL (16-327)
== END 2017-05-26 17:57 | disposition home or self-care (01) ==
LOC: LC 16:33
PROVIDERS: ATTEND Obstetrics & Gynecology
PROC: 4A1HXCZ Monitoring of Products of Conception, Cardiac Rate, External Approach (ICD-10-PCS; principal; 2017-05-26)
DX: O47.1 False labor at or after 37 completed weeks of gestation (principal); Z3A.38 38 weeks gestation of pregnancy
CPT/HCPCS: 36415; 59025; 80053; 80307; 81001; 82570; 83615; 84156; 84550; 85025

== ENCOUNTER 2017-05-28 11:17 | Outpatient (CLI) | payer OTHER, MEDICAID ==
[2017-05-28 11:52] LABS: ABSOLUTE BASOPHILS # (AUTO) 0.1 10^3/uL (0.0-0.2); ABSOLUTE EOSINOPHILS # (AUTO) 0.1 10^3/uL (0.0-0.6); ABSOLUTE MONOCYTES (AUTO) 0.9 10^3/uL (0.1-1.4); ABSOLUTE NEUT (AUTO) 7.1 10^3/uL (1.7-8.2); BASOPHILS % (AUTO) 0.6 % (0-2); EOSINOPHILS % (AUTO) 0.8 % (0-6); HEMATOCRIT 40.7 % (36.0-47.0); HGB HCT DIFFERENCE -1.7; LYMPHOCYTES % (AUTO) 19.7 % (13-45); MEAN CORPUSCULAR HEMOGLOBIN 26.1 pg (27.0-33.4); MEAN CORPUSCULAR HGB CONC 31.9 g/dL (32.0-36.0); MEAN CORPUSCULAR VOLUME 82 fl (80-97); MONOCYTES % (AUTO) 8.7 % (3-13); RED BLOOD COUNT 4.97 10^6/uL (3.72-5.28); RED CELL DISTRIBUTION WIDTH 14.4 % (11.5-14.0); SEGMENTED NEUTROPHILS % (AUTO) 70.2 % (42-78); WHITE BLOOD COUNT 10.1 10^3/uL (4.0-10.5)
[2017-05-28 11:57] LABS: APPEARANCE,URINE SLIGHTLY-CLOUDY; BILIRUBIN,URINE NEGATIVE (NEGATIVE); GLUCOSE, URINE NEGATIVE (NEGATIVE); KETONES,URINE NEGATIVE (NEGATIVE); LEUKOCYTE ESTERASE,URINE SMALL (NEGATIVE); NITRITE,URINE NEGATIVE (NEGATIVE); PROTEIN,URINE NEGATIVE (NEGATIVE); URINE SPECIFIC GRAVITY 1.005; UROBILINOGEN,URINE NEGATIVE mg/dL (<2.0)
[2017-05-28 12:10] LABS: URINE BARBITURATES SCREEN NEGATIVE; URINE METHADONE SCREEN NEGATIVE; URINE OPIATES LOW NEGATIVE; URINE PHENCYCLIDINE SCREEN NEGATIVE
[2017-05-28 12:17] LABS: ALANINE AMINOTRANSFERASE 19 U/L (9-52); ALBUMIN 3.4 g/dL (3.5-5.0); ALKALINE PHOSPHATASE 246 U/L (38-126); ANION GAP 9 (5-19); ASPARTATE AMINO TRANSFERASE 19 U/L (14-36); BILIRUBIN,DIRECT 0.2 mg/dL (0.0-0.4); BILIRUBIN,TOTAL 0.5 mg/dL (0.2-1.3); BLOOD UREA NITROGEN 8 mg/dL (7-20); CALCIUM 9.2 mg/dL (8.4-10.2); CARBON DIOXIDE 23 mmol/L (22-30); CHLORIDE 107 mmol/L (98-107); CREATININE RESULT 0.82 mg/dL (0.52-1.25); GLUCOSE 75 mg/dL (75-110); LDH 558 U/L (313-618); POTASSIUM 4.3 mmol/L (3.6-5.0); SODIUM 139.3 mmol/L (137-145); TOTAL PROTEIN 6.5 g/dL (6.3-8.2); URIC ACID 6.3 mg/dL (2.5-6.2)
[2017-05-28 12:27] LABS: URINE CREATININE 64.9 mg/dL (16-327); URINE PROTEIN 11.8 mg/dL (<12)
--- NOTE | 2017-05-28 12:35 | Non Stress Test Report ---
Non Stress Test Datetime Report Generated by CPN: 05/28/2017 12:34 DEMOGRAPHIC EGA NST: 38.2 INDICATION Indication for Study: Ordered by Provider Indication for Study (NST) Other: Labor Check MONITORING Monitor Explained: Monitor Explained; Test Explained; Patient Verbalized Understanding Time on Monitor: 05/28/2017 11:34 Time off Monitor: 05/28/2017 12:26 NST Duration: 52 NST INTERVENTIONS NST Interventions: PO Hydration; Reposition Patient; Vibroacoustic Stim Physician Notified NST: H. Bhupendra, CNM BABY A: [id number] BABY A Movement : Present Contraction Frequency : irregular FHR Baseline : 135 Accelerations : 15X15 Decelerations : None Variability : Moderate 6-25bpm NST Review: Meets Criteria for Reactive NST NST Review and Verified By : Tram Farrell RNC NST Results: Reactive NST REPORT Report Trigger: Send Report
== END 2017-05-28 12:34 | disposition home or self-care (01) ==
LOC: LC 11:17
PROVIDERS: ATTEND Obstetrics & Gynecology
PROC: 4A1HXCZ Monitoring of Products of Conception, Cardiac Rate, External Approach (ICD-10-PCS; principal; 2017-05-28)
DX: O47.1 False labor at or after 37 completed weeks of gestation (principal); Z3A.38 38 weeks gestation of pregnancy
CPT/HCPCS: 36415; 59025; 80053; 80307; 81001; 82570; 83615; 84156; 84550; 85025

== ENCOUNTER 2017-05-31 06:05 | Inpatient (IN) | payer OTHER, MEDICAID ==
[2017-05-31 06:55] LABS: APPEARANCE,URINE SLIGHTLY-CLOUDY; BILIRUBIN,URINE NEGATIVE (NEGATIVE); GLUCOSE, URINE NEGATIVE (NEGATIVE); KETONES,URINE NEGATIVE (NEGATIVE); LEUKOCYTE ESTERASE,URINE NEGATIVE (NEGATIVE); NITRITE,URINE NEGATIVE (NEGATIVE); PROTEIN,URINE NEGATIVE (NEGATIVE); URINE SPECIFIC GRAVITY 1.006; UROBILINOGEN,URINE NEGATIVE mg/dL (<2.0)
[2017-05-31 07:15] LABS: URINE BARBITURATES SCREEN NEGATIVE; URINE METHADONE SCREEN NEGATIVE; URINE OPIATES LOW NEGATIVE; URINE PHENCYCLIDINE SCREEN NEGATIVE
[2017-05-31] MEDS ORDERED: RINGERS SOLUTION,LACTATED 1,000 ML IV ONE (08:37)
--- NOTE | 2017-05-31 11:43 | RADIOLOGY REPORT (SQ) ---
EXAM DESCRIPTION: U/S PROFILE W/O STRESS COMPLETED DATE/TIME: 05/31/2017 11:16 am REASON FOR STUDY: BPP please COMPARISON: None. TECHNIQUE: Limited healy-scale realtime and static images of the fetus to measure specified parameter s. LIMITATIONS: None. FINDINGS: HEART RATE: 137 beats per minute. SANJAY: 10.3 cm. POSTURE AND TONE: 2 points. MOVEMENT: 0 points. BREATHING MOVEMENT: 2 points. QUALITATIVE SANJAY: 2 points. OTHER: No other significant finding. IMPRESSION: BIOPHYSICAL PROFILE: 05/06. Trimester of : Third - 28 weeks to delivery COMMENT: BREATHING MOVEMENTS: 2 POINTS: PRESENT 0 POINTS: ABSENT MOTION: 2 POINTS: PRESENT 0 POINTS: ABSENT TONE: 2 POINTS: PRESENT 0 POINTS: ABSENT AMNIOTIC FLUID VOLUME: 2 POINTS: LARGEST POCKET GREATER THAN 2 CM DEPTH. 0 POINTS: NO POCKET OF 2 CM. TECHNICAL DOCUMENTATION: JOB ID: [id number] [employer]- All Rights Reserved
[2017-05-31] MEDS ORDERED: DINOPROSTONE 10 MG VAGINAL INSERT.SR ONE (11:51)
[2017-05-31 12:57] LABS: ABSOLUTE EOSINOPHILS # (AUTO) 0.1 10^3/uL (0.0-0.6); ABSOLUTE LYMPHOCYTES (AUTO) 1.6 10^3/uL (0.5-4.7); ABSOLUTE MONOCYTES (AUTO) 0.9 10^3/uL (0.1-1.4); ABSOLUTE NEUT (AUTO) 11.6 10^3/uL (1.7-8.2); BASOPHILS % (AUTO) 0.3 % (0-2); EOSINOPHILS % (AUTO) 0.4 % (0-6); HEMOGLOBIN 12.5 g/dL (12.0-15.5); HGB HCT DIFFERENCE -1.5; LYMPHOCYTES % (AUTO) 11.5 % (13-45); MEAN CORPUSCULAR HGB CONC 32.1 g/dL (32.0-36.0); MEAN CORPUSCULAR VOLUME 81 fl (80-97); MONOCYTES % (AUTO) 6.6 % (3-13); RED BLOOD COUNT 4.83 10^6/uL (3.72-5.28); RED CELL DISTRIBUTION WIDTH 14.4 % (11.5-14.0); SEGMENTED NEUTROPHILS % (AUTO) 81.2 % (42-78); WHITE BLOOD COUNT 14.3 10^3/uL (4.0-10.5)
[2017-05-31 13:39] LABS: URINE CREATININE 74.2 mg/dL (16-327)
[2017-05-31 13:53] LABS: ALANINE AMINOTRANSFERASE 26 U/L (9-52); ALKALINE PHOSPHATASE 260 U/L (38-126); ANION GAP 8 (5-19); ASPARTATE AMINO TRANSFERASE 30 U/L (14-36); BILIRUBIN,DIRECT 0.3 mg/dL (0.0-0.4); BILIRUBIN,TOTAL 0.7 mg/dL (0.2-1.3); BLOOD UREA NITROGEN 8 mg/dL (7-20); CALCIUM 8.5 mg/dL (8.4-10.2); CARBON DIOXIDE 22 mmol/L (22-30); CHLORIDE 107 mmol/L (98-107); CREATININE RESULT 0.73 mg/dL (0.52-1.25); GLUCOSE 70 mg/dL (75-110); LDH 553 U/L (313-618); POTASSIUM 3.9 mmol/L (3.6-5.0); SODIUM 137.2 mmol/L (137-145); URIC ACID 6.1 mg/dL (2.5-6.2)
[2017-05-31] MEDS ORDERED: FENTANYL/BUPIVACAINE/NS/PF 200 MCG/100 ML RTUINJ EPI ONE (17:10)
[2017-05-31] MEDS ORDERED: EPHEDRINE SULFATE INJ 50 MG/1 ML AMPULE ONE (17:10)
[2017-05-31] MEDS ORDERED: BUPIVACAINE HCL 0.25 % INJ/PF (2.5 MG/1 ML) 30 ML VIAL ONE (17:10)
[2017-05-31] MEDS ORDERED: BENZOIN/ALOE VERA/STORAX/TOLU TINCTURE 60 ML TP PRN (17:22)
[2017-05-31] MEDS ORDERED: BUPIVACAINE HCL 0.25 % INJ/PF (2.5 MG/1 ML) 30 ML VIAL INFIL ONE (17:22)
[2017-05-31] MEDS ORDERED: FENTANYL/BUPIVACAINE/NS/PF 100 ML EPI PRN (17:22)
[2017-05-31] MEDS ORDERED: ACETAMINOPHEN 325 MG TABLET PO ONE (21:28)
[2017-05-31] MEDS ORDERED: DEXTROSE 5%-LACTATED RINGERS 1,000 ML IV PRN (21:28)
[2017-05-31] MEDS ORDERED: ACETAMINOPHEN 325 MG TABLET ONE (21:32)
[2017-05-31] MEDS ORDERED: RINGERS SOLUTION,LACTATED 1,000 ML IV PRN (22:11)
[2017-06-01] MEDS ORDERED: PROCHLORPERAZINE MALEATE 10 MG TABLET ONE (00:33)
[2017-06-01] MEDS ORDERED: ACETAMINOPHEN 325 MG TABLET ONE (00:33)
[2017-06-01] MEDS ORDERED: OXYTOCIN/NORMAL SALINE 1,000 ML IV PRN ×2 (01:10→04:50)
[2017-06-01] MEDS ORDERED: ACETAMINOPHEN 325 MG TABLET PO ONE (01:30)
[2017-06-01] MEDS ORDERED: PROCHLORPERAZINE MALEATE 10 MG TABLET PO ONE (01:30)
[2017-06-01] MEDS ORDERED: FENTANYL/BUPIVACAINE/NS/PF 200 MCG/100 ML RTUINJ EPI ONE (03:19)
[2017-06-01] MEDS ORDERED: MISOPROSTOL 0.2 MG TABLET ONE (04:05)
[2017-06-01] MEDS ORDERED: OXYTOCIN/NORMAL SALINE 20 UNIT/1,000 ML RTUINJ ONE (04:05)
[2017-06-01] MEDS ORDERED: LIDOCAINE 1% INJ-PF (10 MG/ML) 30 ML SDV ONE (04:05)
[2017-06-01] MEDS ORDERED: ACETAMINOPHEN WITH CODEINE #3 TABLET PO PRN ×2 (04:50)
[2017-06-01] MEDS ORDERED: DIBUCAINE 1% OINTMENT 28 GM TP PRN (04:50)
[2017-06-01] MEDS ORDERED: DIPH/PERTUSS(ACELL)/TETANUS VAC/PF 0.5 ML SYR (>=10YO) IM PRN (04:50)
[2017-06-01] MEDS ORDERED: ZOLPIDEM TARTRATE 5 MG TABLET PO PRN (04:50)
[2017-06-01] MEDS ORDERED: MEASLES,MUMPS&RUBELLA VACC/PF 0.5 ML VIAL SUBCUT PRN (04:50)
[2017-06-01] MEDS ORDERED: BENZOCAINE/MENTHOL AEROSOL SPRAY 56 ML TOP PRN (04:50)
--- NOTE | 2017-06-01 06:37 | Admission Physical ---
Datetime Report Generated by CPN: 06/01/2017 06:37 CURRENT ADMISSION Chief Complaint: Other Chief Complaint Other: Nonreactive NST. BPP 05/08-no breathing movements Indication for Induction: Indicated by Testing Admit Plan: Admit to Unit; Initiate Labor Induction Protocol ALLERGIES Medication Allergies: No Medication Allergies: No Known Allergies (05/28/2017) Medication Allergies: No Known Allergies (05/26/2017) Medication Allergies: No Known Allergies (03/09/2017) Latex: No Latex Allergies Food Allergies: NA Environmental Allergies: NA OBSTETRICAL HISTORY EDC: 06/09/2017 00:00 : 1 Para: 0 Term: 0 : 0 SAB: 0 IAB: 0 Ectopic: 0 Livin Cesareans: 0 VBACs: 0 Multiple Births: 0 Gestational Diabetes: No Rh Sensitization: No Incompetent Cervix: No ANGEL: No Infertility: No ART Treatment: No Uterine Anomaly: No IUGR: No Hx Previous C/S: No Macrosomia: No Hx Loss/Stillborn: No PIH: No Hx : No Placenta Previa/Abruption: No Depression/PP Depression: No PTL/PROM: No Post Hemorrhage: No Current Procedures: Ultrasound Obstetrical History Comments: G1- current SEE RECORDS Alcohol: No Marijuana : No Cocaine: No Other Illicit Drugs: No Cigarettes: Never Smoker. 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 Surgery: No Heart Disease: No Hosp/Surgery: No Autoimmune Disorder: No Anesthetic Complications: No Kidney Disease: No Abnormal Pap Smear: No Neuro/Epilepsy: No Psychiatric Disorders: No Other Medical Diseases: No Hepatitis/Liver Disease: No Significant Family History: No Varicosities/Phlebitis: No Trauma/Violence : No Thyroid Dysfunction: No INFECTIOUS HISTORY Gonorrhea: No Genital Herpes: No Chlamydia: No Tuberculosis: No Syphilis: No Hepatitis: No HIV/AIDS Exposure: No Rash or Viral Illness: No HPV: No PHYSICAL EXAM General: Normal HEENT: Normal Neurologic: Normal Thyroid: Deferred Heart: Normal Lungs: Normal Breast: Deferred Back: Normal Abdomen: Normal Genitourinary Exam: Deferred Extremities: Normal DTRs: Normal Pelvic Type: Adequate Physical Exam Comments: Gravid uterus Vital Signs: Reviewed Details Vital Signs: some elevated b/p VAGINAL EXAM Dilatation: 1 Effacement: 25 Station: -3 MEMBRANES Membranes: Intact FETUS A EGA: 38.5 Monitoring: External US FHR- Baseline: 130 Variability: Moderate 6-25bpm Accelerations: 10X10 Decelerations: None FHR Category: Category II Presentation: Vertex Admit Comment: G1 Transfer from [facility] in [place] at 27 wks Positive GBS test UTI in early Nonreactive NST, BPP 6/8 with no breathing movements noted Minimal to occasional 10 beat acceleration on strip Plan to admit and use Cervidil for cervical ripening. PLANS FOR LABOR AND DELIVERY Pain Management: Epidural Feeding Preference: Breast Benefit of Breast Feed Discussed: Yes INFORMED CONSENT Assignment: Citlali Ferrer MD Signature: with User ID: Roger : with User ID: Roger : I personally evaluated and examined the patient in conjunction with the MLP and agree with the assessment, treatment plan and disposition.
--- NOTE | 2017-06-01 06:56 | Delivery Summary ---
Del Sum A-C Datetime Report Generated by CPN: 06/01/2017 06:56 DELIVERY PERSONNEL DELIVERY PERSONNEL: [id number] Delivery Doctor:: Citlali Ferrer MD Labor and Delivery Nurse:: Bhavana Dugan RN Labor and Delivery Nurse:: Cammy Machuca RN Optimization Consultant:: Jessica Metcalf RN Nursery Nurse:: Tatianna Watson RN Upholstery Handler/INSTRUMENT TECHNOLOGIST: Glenda Jimenez, ST MATERNAL INFORMATION Delivery Anesthesia: Epidural Medications After Delivery: Pitocin Drip 20 Units/1000ml NSS Estimated Blood Loss (ml): 250 Maternal Complications: None Provider Comments: kiwi applied x 2 w/ PO LABOR SUMMARY EDC: 06/09/2017 00:00 No. Babies in Womb: 1 Attempted: No Labor Anesthesia: Epidural LABOR INFORMATION Reason for Induction: Indicated by Testing Onset of Labor: 06/01/2017 02:03 Complete Dilatation: 06/01/2017 04:02 Oxytocin: N/A Group B Beta Strep: Positive Antibiotics # of Doses: 0 Steroids Given: None Reason Steroids Not Administered: Not Applicable MEMBRANES Membranes Rupture Method: Artificial Rupture of Membranes: 06/01/2017 04:09 Length of Rupture (hr): 0.27 Amniotic Fluid Color: Clear Amniotic Fluid Amount: Moderate Amniotic Fluid Odor: Normal STAGES OF LABOR Stage 1 hr: 1 Stage 1 min: 59 Stage 2 hr: 0 Stage 2 min: 23 Stage 3 hr: 0 Stage 3 min: 3 Total Time in Labor hr: 2 Total Time in Labor min: 25 VAGINAL DELIVERY Episiotomy: None Laceration Extension: Second Degree Laceration Type: Vaginal Laceration Repair: Yes Laceration Repair Note: 2-0 chromic in normal fashion Sponge Count Correct: N/A Sharps Count Correct: Yes CSECTION DELIVERY Primary Indication: N/A Secondary Indication: N/A CSection Incidence: N/A Labor: N/A Elective: N/A CSection Incision: N/A BABY A INFORMATION Infant Delivery Date/Time: 06/01/2017 04:25 Method of Delivery: Vaginal Born in Route : No : N/A Forceps: N/A Vacuum Extraction: Failed Shoulder Dystocia : No ASSISTED DELIVERY BABY A Indication for Assisted Delivery: Bradycardia Catheter Prior to Procedure: Yes Vacuum Number of Pulls: 2 Vacuum Number of PopOffs: 2 Vacuum Maximum Pressure Obtained: 550 Reduce Pressure btwn Ctx: No Vacuum Stator Winder: Kiwi Total Time Vacuum Applied: <1 min PRESENTATION/POSITION BABY A Presentation: Cephalic Cephalic Presentation: Vertex Vertex Position: Left Occipital Anterior Breech Presentation: N/A PLACENTA INFORMATION BABY A Placenta Delivery Time : 06/01/2017 04:28 Placenta Method of Delivery: Spontaneous Placenta Status: Delivered SCORES BABY A Heart Rate 1 min: >100 bpm Resp Effort 1 min: Good Cry Reflex Irritability 1 min: Cough or Sneeze or Pulls Away Muscle Tone 1 min: Active Motion Color 1 min: Body [place], Extremities Blue Resuscitation Effort 1 min: Tactile Stimulation SCORE 1 MIN: 9 Heart Rate 5 min: >100 bpm Resp Effort 5 min: Good Cry Reflex Irritability 5 min: Cough or Sneeze or Pulls Away Muscle Tone 5 min: Active Motion Color 5 min: Body [place], Extremities Blue Resuscitation Effort 5 min: Tactile Stimulation SCORE 5 MIN: 9 INFANT INFORMATION BABY A Gestational Age at Delivery: 38.6 Gestational Status: Early Term- 37- 38.6 Weeks Outcome : Liveborn Condition : Stable Infant Sex: Male IDENTIFICATION BABY A Verification Date/Time: 06/01/2017 04:46 ID Band Number: [id number] Mother's Name Verified: Yes RN Verifying Infant: SLiliana Hidalgoamisarahrigoberto, RN _ Misha Metcalf, RN WEIGHT/LENGTH BABY A Birthweight (gm): 3545 Weight (lb): 7 Weight (oz): 13 Length (in): 20.00 Infant Length (cm): 50.80 CORD INFORMATION BABY A No. Cord Vessels: 3 Nuchal Cord : Around Neck x1, Loose Cord Blood Taken: Yes-For Eval (Mom's Blood Type - or O+) Infant Suction: Mouth; Nose ASSESSMENT BABY A Complications: Extended Bradycardia Physical Findings at Delivery: Within Normal Limits Respirations: Appears Normal Skin to Skin: Yes Electrical Discharge Machine Operator/ALS Called : No Infant Care By: Jairon Quintana RN Transferred To: Remains with Mother BABY B INFORMATION : N/A SIGNATURES Signature: with User ID: [email or web address] : Katlin personally evaluated and examined the patient in conjunction with the MLP and agree with the assessment, treatment plan and disposition.
[2017-06-01] MEDS: IBUPROFEN 800 MG TABLET PO SCH ×3 (07:38→21:25)
[2017-06-01] MEDS: PRENATAL VITAMIN W-O CA NO5/FE FUMARATE/FA CAPSULE PO SCH (09:20)
[2017-06-01] MEDS: FERROUS SULFATE 325 MG TABLET PO SCH ×2 (09:20→17:38)
[2017-06-01] MEDS: SENNOSIDES/DOCUSATE 8.6-50 MG 1 EACH TABLET PO SCH (09:20)
[2017-06-01] MEDS: DOCUSATE SODIUM 100 MG CAPSULE PO SCH ×2 (09:21→17:38)
[2017-06-02] MEDS: IBUPROFEN 800 MG TABLET PO SCH ×3 (05:02→21:08)
[2017-06-02 07:31] LABS: HEMATOCRIT 28.4 % (36.0-47.0); HGB HCT DIFFERENCE -1.1; MEAN CORPUSCULAR HEMOGLOBIN 26.1 pg (27.0-33.4); MEAN CORPUSCULAR HGB CONC 32.2 g/dL (32.0-36.0); MEAN CORPUSCULAR VOLUME 81 fl (80-97); RED CELL DISTRIBUTION WIDTH 14.9 % (11.5-14.0); WHITE BLOOD COUNT 12.5 10^3/uL (4.0-10.5)
[2017-06-02 07:34] LABS: HEMOGLOBIN 9.1 g/dL (12.0-15.5)
--- NOTE | 2017-06-02 09:00 | PDOC PROGRESS REPORT ---
Subjective-OB Subjective: Post Delivery Day: 1 22 year old. Denies any needs at this time, states lochia is stable, pain well controlled, voiding without difficulty. Physical Exam (OB) Vital Signs: Temp Pulse Resp BP Pulse Ox 98.3 F 93 20 119/66 97 06/02/17 03:35 06/02/17 03:35 06/02/17 03:35 06/02/17 03:35 06/02/17 03:35 - Lochia Lochia Amount: Small 10-25 ml Lochia Color: Rubra/Red - Abdomen Description: Soft Hernia Present: Yes Fundal Description: Firm, Non-Midline Fundal Height: u/u - u/2 Objective-Diagnostic Laboratory: 06/02/17 07:15 05/31/17 12:45 06/02/17 07:15 WBC 12.5 H RBC 3.50 L Hgb 9.1 L D Hct 28.4 L MCV 81 MCH 26.1 L MCHC 32.2 RDW 14.9 H Plt Count 131 L Assessment and Plan(PN) - Assessment and Plan (1) Vaginal delivery Is this a current diagnosis for this admission?: YesPlan: routine pp care (2) Acute blood loss anemia Is this a current diagnosis for this admission?: YesPlan: ferrous sulfate increase dietary iron - Time Spent with Patient Time with patient: Less than 15 minutes Critical Time spent with patient: Less than 15 minutes Medications reviewed and adjusted accordingly: Yes - Disposition Anticipated Discharge: Home Within: within 24 hours
[2017-06-02] MEDS: DOCUSATE SODIUM 100 MG CAPSULE PO SCH ×2 (10:14→17:15)
[2017-06-02] MEDS: SENNOSIDES/DOCUSATE 8.6-50 MG 1 EACH TABLET PO SCH (10:14)
[2017-06-02] MEDS: PRENATAL VITAMIN W-O CA NO5/FE FUMARATE/FA CAPSULE PO SCH (10:14)
[2017-06-02] MEDS: FERROUS SULFATE 325 MG TABLET PO SCH ×2 (10:14→17:15)
[2017-06-03] MEDS: IBUPROFEN 800 MG TABLET PO SCH ×2 (05:16→13:43)
[2017-06-03] MEDS: PRENATAL VITAMIN W-O CA NO5/FE FUMARATE/FA CAPSULE PO SCH (09:24)
[2017-06-03] MEDS: SENNOSIDES/DOCUSATE 8.6-50 MG 1 EACH TABLET PO SCH (09:25)
[2017-06-03] MEDS: DOCUSATE SODIUM 100 MG CAPSULE PO SCH (09:25)
[2017-06-03] MEDS: FERROUS SULFATE 325 MG TABLET PO SCH (09:25)
[2017-06-03 11:27] VITALS: BP 119/87
--- NOTE | 2017-06-03 13:03 | PDOC DISCHARGE SUMMARY ---
Final Diagnosis Discharge Date: 06/03/17 - Final Diagnosis (1) Acute blood loss anemia Is this a current diagnosis for this admission?: Yes (2) Vaginal delivery Is this a current diagnosis for this admission?: Yes Discharge Data - Discharge Medication Home Medications: Pnv No.122/Iron/Folic Acid [ Multi Tablet] 1 tab PO DAILY 03/09/17 Reason(s) for Admission: Induction of Labor Procedures: NST Intrapartum Procedure(s): Spontaneous Vaginal Delivery Complication(s): Laceration-Vaginal Laceration-Degree: 2nd - Diagnosis Test Laboratory: Temp Pulse Resp BP Pulse Ox 98.2 F 100 20 119/87 H 98 06/03/17 11:26 06/03/17 11:26 06/03/17 11:26 06/03/17 11:26 06/03/17 11:26 05/31/17 05/31/17 06/02/17 06:20 12:45 07:15 RBC 4.83 3.50 L Hgb 12.5 9.1 L D Hct 39.0 28.4 L Urine Opiates Screen NEGATIVE - Discharge information/Instructions Discharge Activity: Activity As Tolerated Discharge Diet: Regular Disposition: HOME, SELF-CARE Follow up with: [facility] in: 4
== END 2017-06-03 15:20 | disposition home or self-care (01) | DRG 775 ==
LOC: LC 06:05 → LR 11:54 → 2S 06-01 06:35
PROVIDERS: ADMIT Obstetrics & Gynecology; ATTEND Obstetrics & Gynecology
PROC: 10D07Z6 Extraction of Products of Conception, Vacuum, Via Natural or Artificial Opening (ICD-10-PCS; principal; 2017-06-01)
DX: O99.824 Streptococcus B carrier state complicating childbirth (principal); D62 Acute posthemorrhagic anemia; O71.4 Obstetric high vaginal laceration alone; O76 Abnormality in fetal heart rate and rhythm complicating labor and delivery; O69.81X0 Labor and delivery complicated by cord around neck, without compression, not applicable or unspecified; Z3A.38 38 weeks gestation of pregnancy; Z37.0 Single live birth; O90.81 Anemia of the puerperium
CPT/HCPCS: 36415; 59025; 76819; 80053; 80307; 81001; 82570; 83615; 84156; 84550; 85025; 85027; 86592; 86850; 86900; 86901; J2590; J3490; Q0114; S0183

== ENCOUNTER → 2018-03-14 | Outpatient (CLI) | payer OTHER, MEDICAID ==
[2018-03-14 17:26] LABS: ABSOLUTE EOSINOPHILS # (AUTO) 0.1 10^3/uL (0.0-0.6); ABSOLUTE LYMPHOCYTES (AUTO) 1.8 10^3/uL (0.5-4.7); ABSOLUTE MONOCYTES (AUTO) 0.8 10^3/uL (0.1-1.4); ABSOLUTE NEUT (AUTO) 8.8 10^3/uL (1.7-8.2); BASOPHILS % (AUTO) 0.2 % (0-2); HEMATOCRIT 39.7 % (36.0-47.0); HEMOGLOBIN 13.1 g/dL (12.0-15.5); LYMPHOCYTES % (AUTO) 15.8 % (13-45); MEAN CORPUSCULAR HEMOGLOBIN 26.3 pg (27.0-33.4); MEAN CORPUSCULAR VOLUME 80 fl (80-97); MONOCYTES % (AUTO) 6.6 % (3-13); PLATELET COUNT 287 10^3/uL (150-450); RED BLOOD COUNT 4.97 10^6/uL (3.72-5.28); RED CELL DISTRIBUTION WIDTH 14.7 % (11.5-14.0); SEGMENTED NEUTROPHILS % (AUTO) 76.4 % (42-78); TOTAL CELLS COUNTED % (AUTO) 100 %; WHITE BLOOD COUNT 11.5 10^3/uL (4.0-10.5)
[2018-03-14 18:26] LABS: RUBELLA INTERPRETATION POSITIVE
[2018-03-16 07:42] LABS: HEPATITIS C VIRUS AB <0.1 s/co ratio (0.0-0.9)
[2018-03-16 08:40] LABS: HEPATITS B SURFACE ANTIGEN Negative (Negative)
[2018-03-16 14:40] LABS: HGB A 97.7 % (96.4-98.8); HGB A2 2.3 % (1.8-3.2); HGB SOLUBILITY RESULT Negative (Negative)
== END ==
LOC: OD 16:34
PROVIDERS: ATTEND Midwife
DX: Z34.81 Encounter for supervision of other normal pregnancy, first trimester (principal); Z13.0 Encounter for screening for diseases of the blood and blood-forming organs and certain disorders involving the immune mechanism; Z13.29 Encounter for screening for other suspected endocrine disorder; Z11.3 Encounter for screening for infections with a predominantly sexual mode of transmission
CPT/HCPCS: 36415; 83020; 84439; 84443; 85025; 86592; 86701; 86762; 86803; 86804; 86850; 86900; 86901; 87086; 87088; 87340

== ENCOUNTER 2018-10-12 09:03 | Inpatient (IN) | payer OTHER ==
[2018-10-12 09:44] LABS: APPEARANCE,URINE CLOUDY; BILIRUBIN,URINE NEGATIVE (NEGATIVE); COLOR,URINE YELLOW; GLUCOSE, URINE NEGATIVE (NEGATIVE); KETONES,URINE NEGATIVE (NEGATIVE); LEUKOCYTE ESTERASE,URINE LARGE (NEGATIVE); NITRITE,URINE NEGATIVE (NEGATIVE); PROTEIN,URINE NEGATIVE (NEGATIVE); URINE SPECIFIC GRAVITY 1.012
[2018-10-12 10:12] LABS: URINE AMPHETAMINES SCREEN NEGATIVE; URINE BARBITURATES SCREEN NEGATIVE; URINE BENZODIAZEPINES SCREEN NEGATIVE; URINE COCAINE SCREEN NEGATIVE; URINE MARIJUANA (THC) SCREEN NEGATIVE; URINE METHADONE SCREEN NEGATIVE; URINE PHENCYCLIDINE SCREEN NEGATIVE
[2018-10-12] MEDS ORDERED: LIDOCAINE 1% INJ-PF (10 MG/ML) 30 ML SDV ONE (11:05)
[2018-10-12] MEDS ORDERED: MISOPROSTOL 0.2 MG TABLET ONE (11:05)
[2018-10-12] MEDS ORDERED: OXYTOCIN/NORMAL SALINE 20 UNIT/1,000 ML RTUINJ ONE (11:05)
[2018-10-12] MEDS ORDERED: RINGERS SOLUTION,LACTATED 1,000 ML IV PRN (11:06)
[2018-10-12] MEDS ORDERED: RINGERS SOLUTION,LACTATED 1,000 ML IV ONE (11:06)
--- NOTE | 2018-10-12 12:25 | L&D Progress Notes ---
PROGRESS NOTES Datetime Report Generated by CPN: 10/12/2018 12:25 PROGRESS NOTE Impression: Normal Progression of Labor Procedures: Sterile Vag Exam Plan: Continue Present Management; Anticipate Vaginal Delivery Vital Signs : Reviewed; Within Normal Limits Comment: Pt uncomfortable with contractions, waiting on CBC to get an epidural. VE done, position changes made. Anticipate . Attending MD is Dr Alan VAGINAL EXAM Dilatation: 10 Effacement: 90 Station: -1 Contractions: q2-3 MEMBRANES Membranes: Bulging FETUS A FHR - Baseline: 135 Monitoring: External US Variability: Moderate 6-25bpm Accelerations: 15X15 Decelerations: None FHR Category: Category I SIGNATURE Assignment: Kelly Alan MD Signature: with User ID: [email or web address] : with User ID: [email or web address]
[2018-10-12 12:26] LABS: HEMATOCRIT 31.4 % (36.0-47.0); HEMOGLOBIN 9.8 g/dL (12.0-15.5); MEAN CORPUSCULAR HEMOGLOBIN 20.1 pg (27.0-33.4); MEAN CORPUSCULAR HGB CONC 31.1 g/dL (32.0-36.0); PLATELET COUNT 175 10^3/uL (150-450); RED BLOOD COUNT 4.87 10^6/uL (3.72-5.28); RED CELL DISTRIBUTION WIDTH 19.1 % (11.5-14.0); WHITE BLOOD COUNT 11.3 10^3/uL (4.0-10.5)
[2018-10-12 12:29] LABS: MEAN CORPUSCULAR VOLUME 64 fl (80-97)
[2018-10-12 12:49] LABS: ABSOLUTE LYMPHOCYTES# (MANUAL) 0.9 10^3/uL (0.5-4.7); ABSOLUTE MONOCYTES # (MANUAL) 0.8 10^3/uL (0.1-1.4); ABSOLUTE NEUTROPHILS# (MANUAL) 9.6 10^3/uL (1.7-8.2); BASOPHILS % (MANUAL) 0 % (0-2); EOSINOPHILS % (MANUAL) 0 % (0-6); LYMPHOCYTES % (MANUAL) 8 % (13-45); MONOCYTES % (MANUAL) 7 % (3-13); SEGMENTED NEUTROPHILS % (MAN) 85 % (42-78); TOTAL CELLS COUNTED 100
[2018-10-12 12:50] LABS: ANISOCYTOSIS 2+; HYPOCHROMASIA 1+; OVALOCYTES 1+; PLATELET COMMENT ADEQUATE; PLATELET GIANT PRESENT; PLATELET LARGE PRESENT; POIKILOCYTOSIS 1+; POLYCHROMASIA 1+; ROULEAUX SLIGHT; TOXIC GRANULATION 1+
[2018-10-12] MEDS ORDERED: ACETAMINOPHEN WITH CODEINE #3 TABLET PO PRN ×4 (13:26→15:11)
[2018-10-12] MEDS ORDERED: DIPH/PERTUSS(ACELL)/TETANUS VAC/PF 0.5 ML SYR (>=10YO) IM PRN ×2 (13:26→15:11)
[2018-10-12] MEDS ORDERED: OXYTOCIN/NORMAL SALINE 20 UNIT/1,000 ML RTUINJ IV PRN ×2 (13:26→15:11)
[2018-10-12] MEDS ORDERED: DIBUCAINE 1% OINTMENT 28 GM TP PRN ×2 (13:26→15:11)
[2018-10-12] MEDS ORDERED: MEASLES,MUMPS&RUBELLA VACC/PF 0.5 ML VIAL SUBCUT PRN ×2 (13:26→15:11)
[2018-10-12] MEDS ORDERED: BENZOCAINE/MENTHOL AEROSOL SPRAY 56 ML TOP PRN ×2 (13:26→15:11)
[2018-10-12] MEDS ORDERED: ZOLPIDEM TARTRATE 5 MG TABLET PO PRN ×2 (13:26→15:11)
[2018-10-12] MEDS ORDERED: ACETAMINOPHEN WITH CODEINE #3 TABLET ONE (13:31)
[2018-10-12] MEDS ORDERED: IBUPROFEN 800 MG TABLET ONE (13:32)
[2018-10-12] MEDS ORDERED: IBUPROFEN 800 MG TABLET PO SCH (14:00)
[2018-10-12] MEDS ORDERED: MAGNESIUM HYDROXIDE SUSP 30 ML UDCUP PO PRN (15:11)
[2018-10-12] MEDS ORDERED: PSEUDOEPHEDRINE HCL 30 MG TABLET PO PRN (15:11)
[2018-10-12] MEDS ORDERED: PROMETHAZINE HCL INJ 25 MG/1 ML VIAL IV PRN (15:11)
[2018-10-12] MEDS ORDERED: NA PHOS,M-B/NA PHOS,DI-BA (ADULT) 133 ML ENEMA PR PRN (15:11)
[2018-10-12] MEDS ORDERED: PROMETHAZINE HCL 25 MG TABLET PO PRN (15:11)
[2018-10-12] MEDS ORDERED: ACETAMINOPHEN 650 MG SUPP.RECT PR PRN (15:11)
[2018-10-12] MEDS ORDERED: DIPHENHYDRAMINE HCL 25 MG CAPSULE PO PRN (15:11)
[2018-10-12] MEDS ORDERED: PROMETHAZINE HCL 25 MG SUPP.RECT PR PRN (15:11)
[2018-10-12] MEDS ORDERED: GLYCERIN/WITCH HAZEL LEAF 1 EACH MED..PAD TP PRN (15:11)
--- NOTE | 2018-10-12 15:38 | Delivery Summary ---
Del Sum A-C Datetime Report Generated by CPN: 10/12/2018 15:38 DELIVERY PERSONNEL DELIVERY PERSONNEL: [id number] Delivery Doctor:: Crystal Ball CNM Labor and Delivery Nurse:: Carmen Aguilar RNgrinder set up operator surface Nurse:: Marguerite Ferrer RN Student Observers:: Cristina Nguyen RN Water Resource Engineering Specialist/ELEMENTARY CLASSROOM TEACHER: YIFAN DanielA II MATERNAL INFORMATION Delivery Anesthesia: None Medications After Delivery: Pitocin Bolus-Please Comment Meds After Delivery Comment: Pitocin 20 units in 1 L NS bolusing per order Maternal Complications: None Provider Comments: of baby boy, rotated to JUAN CARLOS, nuchal cord easily reduced. Placed on pts abdoman in stable condition. Cord clamped and cut after one minute. Cord blood obtained. Placenta S/C/I, ff with decreased lochia after SL Cytotec 200 mcg given, along with IV Pitocin infusing. 2nd degree laceration repaired. Pt and baby in stable condition. Pt plans to breastfeed. QBL 450. Attending MD is Dr Alan LABOR SUMMARY EDC: 10/19/2018 00:00 No. Babies in Womb: 1 Attempted: No Labor Anesthesia: None LABOR INFORMATION Reason for Induction: Not Applicable Onset of Labor: 10/12/2018 03:00 Complete Dilatation: 10/12/2018 12:47 Oxytocin: N/A Group B Beta Strep: NEGATIVE Antibiotics # of Doses: 0 Antibiotics Time of Last Dose: n/a Name of Antibiotic Given: n/a Steroids Given: None Reason Steroids Not Administered: Not Applicable Other Reason Not Administered: N/A MEMBRANES Membranes Rupture Method: Artificial Rupture of Membranes: 10/12/2018 12:39 Length of Rupture (hr): 0.28 Amniotic Fluid Color: Clear Amniotic Fluid Amount: Small Amniotic Fluid Odor: Normal STAGES OF LABOR Stage 1 hr: 9 Stage 1 min: 47 Stage 2 hr: 0 Stage 2 min: 9 Stage 3 hr: 0 Stage 3 min: 5 Total Time in Labor hr: 10 Total Time in Labor min: 1 VAGINAL DELIVERY Episiotomy: Median Laceration #1: Perineal Laceration Extension #1: Second Degree Laceration Repair: Yes Laceration Repair Note: 2nd degree laceration performed using 1% lidocaine and 2.0 Chromic Gut w/ running stitch. Pt tolerated procedure well. CSECTION DELIVERY Primary Indication: N/A Secondary Indication: N/A CSection Incidence: N/A Labor: N/A Elective: N/A CSection Incision: N/A BABY A INFORMATION Infant Delivery Date/Time: 10/12/2018 12:56 Method of Delivery: Vaginal Born in Route : No : N/A Forceps: N/A Vacuum Extraction: N/A Shoulder Dystocia : No PRESENTATION/POSITION BABY A Presentation: Cephalic Cephalic Presentation: Vertex Vertex Position: Left Occipital Anterior Breech Presentation: N/A PLACENTA INFORMATION BABY A Placenta Delivery Time : 10/12/2018 13:01 Placenta Method of Delivery: Spontaneous Placenta Status: Delivered SCORES BABY A Heart Rate 1 min: >100 bpm Resp Effort 1 min: Slow, Irregular Reflex Irritability 1 min: Cough or Sneeze or Pulls Away Muscle Tone 1 min: Active Motion Color 1 min: Body [place], Extremities Blue Resuscitation Effort 1 min: Tactile Stimulation SCORE 1 MIN: 8 Heart Rate 5 min: >100 bpm Resp Effort 5 min: Good Cry Reflex Irritability 5 min: Cough or Sneeze or Pulls Away Muscle Tone 5 min: Active Motion Color 5 min: Completely [place] Resuscitation Effort 5 min: Tactile Stimulation SCORE 5 MIN: 10 INFANT INFORMATION BABY A Gestational Age at Delivery: 39.0 Gestational Status: Full Term- 39- 40.6 Weeks Outcome : Liveborn Condition : Stable Sex: Male IDENTIFICATION BABY A Verification Date/Time: 10/12/2018 13:45 ID Band Number: [id number] Mother's Name Verified: Yes RN Verifying Infant: Misha Ferrer PRISCILLA, Rubio Simon, PRISCILLA WEIGHT/LENGTH BABY A Infant Birthweight (gm): 3860 Infant Weight (lb): 8 Weight (oz): 8 Length (in): 20.75 Length (cm): 52.71 CORD INFORMATION BABY A No. Cord Vessels: 3 Nuchal Cord : Around Neck x1, Loose Cord Blood Taken: Yes-For Eval (Mom's Blood Type - or O+) Suction: Mouth; Nose ASSESSMENT BABY A Infant Complications: Meconium Physical Findings at Delivery: Within Normal Limits Infant Respirations: Appears Normal Skin to Skin: Yes Skin to Skin Time (min): 90 Packing Room Worker/ALS Called : No Care By: Misha Ferrer, PRISCILLA, Nando Stanley Transferred To: Remains with Mother BABY B INFORMATION : N/A SIGNATURES Assignment: Kelly Alan MD Signature: with User ID: [email or web address] : with User ID: [email or web address]
[2018-10-12] MEDS ORDERED: DOCUSATE SODIUM 100 MG CAPSULE PO SCH (18:00)
[2018-10-12] MEDS ORDERED: FERROUS SULFATE 325 MG TABLET PO SCH (18:00)
[2018-10-12] MEDS: FERROUS SULFATE 325 MG TABLET PO SCH (18:25)
[2018-10-12] MEDS: DOCUSATE SODIUM 100 MG CAPSULE PO SCH (18:25)
[2018-10-12] MEDS: IBUPROFEN 800 MG TABLET PO SCH (22:14)
[2018-10-12] MEDS: FAMOTIDINE 20 MG TABLET PO SCH (22:14)
[2018-10-13] MEDS: IBUPROFEN 800 MG TABLET PO SCH ×3 (05:01→21:04)
[2018-10-13 07:42] LABS: HEMATOCRIT 26.5 % (36.0-47.0); HEMOGLOBIN 8.3 g/dL (12.0-15.5); MEAN CORPUSCULAR HEMOGLOBIN 20.5 pg (27.0-33.4); MEAN CORPUSCULAR HGB CONC 31.3 g/dL (32.0-36.0); MEAN CORPUSCULAR VOLUME 65 fl (80-97); PLATELET COUNT 131 10^3/uL (150-450); RED BLOOD COUNT 4.05 10^6/uL (3.72-5.28); RED CELL DISTRIBUTION WIDTH 19.3 % (11.5-14.0); WHITE BLOOD COUNT 12.5 10^3/uL (4.0-10.5)
--- NOTE | 2018-10-13 09:26 | PDOC PROGRESS REPORT ---
Subjective-OB Progress Note for:: 10/13/18 Subjective: Doing well, no c/o, hsb at BS, Physical Exam (OB) Vital Signs: Temp Pulse Resp BP Pulse Ox 97.8 F 82 18 115/70 98 10/13/18 07:31 10/13/18 07:31 10/13/18 07:31 10/13/18 07:31 10/13/18 07:31 Intake & Output 10/12/18 10/13/18 10/14/18 06:59 06:59 06:59 Weight 89 kg - PIH/Pre-Eclampsia DTR's: 1 + Clonus: Negative Headache: Absent Epigastric Pain: No Visual Changes: No - Lochia Lochia Amount: Small 10-25 ml Lochia Color: Rubra/Red - Abdomen Description: Soft, Round Hernia Present: No Fundal Description: Firm, Midline Fundal Height: u/u - u/2 Objective-Diagnostic Laboratory: 10/13/18 07:14 10/12/18 10/12/18 10/12/18 09:15 12:00 12:00 WBC 11.3 H RBC 4.87 Hgb 9.8 L Hct 31.4 L MCV 64 L MCH 20.1 L MCHC 31.1 L RDW 19.1 H Plt Count 175 Seg Neutrophils % Not Reportable Lymphocytes % Not Reportable Monocytes % Not Reportable Eosinophils % Not Reportable Basophils % Not Reportable Absolute Neutrophils Not Reportable Absolute Lymphocytes Not Reportable Absolute Monocytes Not Reportable Absolute Eosinophils Not Reportable Absolute Basophils Not Reportable Urine Color YELLOW Urine Appearance CLOUDY Urine pH 6.0 Ur Specific [place] 1.012 Urine Protein NEGATIVE Urine Glucose (UA) NEGATIVE Urine Ketones NEGATIVE Urine Blood NEGATIVE Urine Nitrite NEGATIVE Ur Leukocyte Esterase LARGE H Blood Type O POSITIVE Antibody Screen NEGATIVE 10/13/18 07:14 WBC 12.5 H RBC 4.05 Hgb 8.3 L Hct 26.5 L MCV 65 L MCH 20.5 L MCHC 31.3 L RDW 19.3 H Plt Count 131 L Seg Neutrophils % Lymphocytes % Monocytes % Eosinophils % Basophils % Absolute Neutrophils Absolute Lymphocytes Absolute Monocytes Absolute Eosinophils Absolute Basophils Urine Color Urine Appearance Urine pH Ur Specific [place] Urine Protein Urine Glucose (UA) Urine Ketones Urine Blood Urine Nitrite Ur Leukocyte Esterase Blood Type Antibody Screen Assessment and Plan(PN) - Assessment and Plan (1) Delivery normal Is this a current diagnosis for this admission?: Yes (2) Obstetrical laceration, second degree Is this a current diagnosis for this admission?: Yes - Time Spent with Patient Time with patient: Less than 15 minutes Medications reviewed and adjusted accordingly: Yes - Disposition Anticipated Discharge: Home Within: within 24 hours
[2018-10-13] MEDS ORDERED: PROMETHAZINE HCL INJ 25 MG/1 ML VIAL IV PRN (09:30)
[2018-10-13] MEDS ORDERED: MEASLES,MUMPS&RUBELLA VACC/PF 0.5 ML VIAL SUBCUT PRN (09:30)
[2018-10-13] MEDS ORDERED: DIPH/PERTUSS(ACELL)/TETANUS VAC/PF 0.5 ML SYR (>=10YO) IM PRN (09:30)
[2018-10-13] MEDS ORDERED: (PENDING PHARMACY ID) (Venlafaxine Hcl [Venlafaxine Hcl Er] 75 MG) PO SCH (10:00)
[2018-10-13] MEDS ORDERED: SENNOSIDES/DOCUSATE 8.6-50 MG 1 EACH TABLET PO SCH (10:00)
[2018-10-13] MEDS ORDERED: PRENATAL VITAMIN W DHA CAPSULE PO SCH (10:00)
[2018-10-13] MEDS: FAMOTIDINE 20 MG TABLET PO SCH ×2 (10:23→21:04)
[2018-10-13] MEDS: SENNOSIDES/DOCUSATE 8.6-50 MG 1 EACH TABLET PO SCH (10:23)
[2018-10-13] MEDS: FERROUS SULFATE 325 MG TABLET PO SCH ×2 (10:23→18:15)
[2018-10-13] MEDS: PRENATAL VITAMIN W DHA CAPSULE PO SCH (10:23)
[2018-10-13] MEDS: DOCUSATE SODIUM 100 MG CAPSULE PO SCH ×2 (10:23→18:15)
[2018-10-13] MEDS: VENLAFAXINE HCL 75 MG CAP.SR.24H PO SCH (12:06)
[2018-10-13 14:01] LABS: PATH REVIEW PATHOLOGIST REVIEWED
[2018-10-14] MEDS: IBUPROFEN 800 MG TABLET PO SCH (05:58)
[2018-10-14 09:06] VITALS: BP 122/70
--- NOTE | 2018-10-14 09:24 | PDOC DISCHARGE SUMMARY ---
Final Diagnosis Discharge Date: 10/14/18 - Final Diagnosis (1) Anemia complicating , third trimester Is this a current diagnosis for this admission?: Yes (2) Delivery normal Is this a current diagnosis for this admission?: Yes (3) Obstetrical laceration, second degree Is this a current diagnosis for this admission?: Yes (4) Active labor at term Is this a current diagnosis for this admission?: Yes Discharge Data - Discharge Medication Prescriptions: Ibuprofen [Motrin 800 mg Tablet] 800 mg PO Q8HP PRN #60 tablet PRN Reason: Abdominal Cramping Benzocaine/Menthol [Dermoplast Aerosol [place] 56 ml] 1 applic TOP PRN PRN #1 can PRN Reason: For Breakthrough Pain Docusate Sodium [Colace 100 mg Capsule] 100 mg PO BID #60 capsule Ferrous Sulfate [Feosol 325 mg Tablet] 325 mg PO BID #60 tablet Home Medications: No122/Iron/Folic Acid [ Multi Tablet] 1 tab PO DAILY 03/09/17 Ibuprofen [Motrin 800 mg Tablet] 800 mg PO Q8 #90 tablet 06/03/17 Venlafaxine HCl [Venlafaxine HCl ER] 75 mg PO DAILY 10/12/18 Benzocaine/Menthol [Dermoplast Aerosol [place] 56 ml] 1 applic TOP PRN PRN #1 can 10/14/18 Docusate Sodium [Colace 100 mg Capsule] 100 mg PO BID #60 capsule 10/14/18 Ferrous Sulfate [Feosol 325 mg Tablet] 325 mg PO BID #60 tablet 10/14/18 Ibuprofen [Motrin 800 mg Tablet] 800 mg PO Q8HP PRN #60 tablet 10/14/18 Reason(s) for Admission: Onset of Labor Procedures: Ultrasound Intrapartum Procedure(s): Spontaneous Vaginal Delivery Complication(s): Laceration-Perineal Laceration-Degree: 2nd - Diagnosis Test Laboratory: Temp Pulse Resp BP Pulse Ox 98.1 F 81 18 122/70 96 10/14/18 07:57 10/14/18 07:57 10/14/18 07:57 10/14/18 07:57 10/14/18 07:57 10/12/18 10/12/18 10/13/18 09:15 12:00 07:14 RBC 4.87 4.05 Hgb 9.8 L 8.3 L Hct 31.4 L 26.5 L Urine Opiates Screen NEGATIVE - Discharge information/Instructions Discharge Activity: Balance Activity w/Rest, No Lifting Over 10 Pounds, Pelvic Rest, No tub bath, Walk Frequently Discharge Diet: As Tolerated, Regular Disposition: HOME, SELF-CARE Follow up with: [facility] in: 1, Weeks - hx of depression
[2018-10-14] MEDS: VENLAFAXINE HCL 75 MG CAP.SR.24H PO SCH (10:19)
[2018-10-14] MEDS: SENNOSIDES/DOCUSATE 8.6-50 MG 1 EACH TABLET PO SCH (10:19)
[2018-10-14] MEDS: FAMOTIDINE 20 MG TABLET PO SCH (10:19)
[2018-10-14] MEDS: FERROUS SULFATE 325 MG TABLET PO SCH (10:19)
[2018-10-14] MEDS: DOCUSATE SODIUM 100 MG CAPSULE PO SCH (10:19)
[2018-10-14] MEDS: PRENATAL VITAMIN W DHA CAPSULE PO SCH (10:20)
== END 2018-10-14 14:51 | disposition home or self-care (01) | DRG 807 ==
LOC: LC 09:03 → LR 11:19 → 2N 15:30
PROVIDERS: ADMIT Student in an Organized Health Care Education/Training Program; ATTEND Student in an Organized Health Care Education/Training Program
PROC: 10E0XZZ Delivery of Products of Conception, External Approach (ICD-10-PCS; principal; 2018-10-12)
PROC: 0KQM0ZZ Repair Perineum Muscle, Open Approach (ICD-10-PCS; 2018-10-12)
PROC: 4A1HXCZ Monitoring of Products of Conception, Cardiac Rate, External Approach (ICD-10-PCS; 2018-10-12)
PROC: 0W8NXZZ Division of Female Perineum, External Approach (ICD-10-PCS; 2018-10-12)
DX: O70.1 Second degree perineal laceration during delivery (principal); O76 Abnormality in fetal heart rate and rhythm complicating labor and delivery; O69.81X0 Labor and delivery complicated by cord around neck, without compression, not applicable or unspecified; O99.02 Anemia complicating childbirth; D64.9 Anemia, unspecified; Z3A.39 39 weeks gestation of pregnancy; Z37.0 Single live birth
CPT/HCPCS: 36415; 80307; 81005; 85025; 85027; 86592; 86850; 86900; 86901; J2590; J3490